=== PATIENT | male | born 1975 | race Two or more races ===

== ENCOUNTER → 2020-01-13 06:36 | Outpatient (BNVA) | payer OTHER, SELFPAY | PROVIDERS: PCP Internal Medicine; Visit Provider Surgery | DX: Z76.89 Persons encountering health services in other specified circumstances (principal) ==

== ENCOUNTER → 2020-01-23 14:06 | Outpatient (BNVA) | payer OTHER, SELFPAY | PROVIDERS: PCP Internal Medicine; Referring Provider Internal Medicine; Visit Provider Physician Assistant | DX: Z76.89 Persons encountering health services in other specified circumstances (principal) ==

== ENCOUNTER 2020-01-27 14:24 | Inpatient (IN) | payer OTHER, SELFPAY ==
[2020-01-23 12:36] VITALS: BMI 40.0
[2020-01-23 12:42] VITALS: BP 114/73; PULSE 71; RESP 16; O2SAT 96
--- NOTE | 2020-01-23 13:01 | HO.ANESPROP2 ---
Documented by User: Kassie Apodaca 01/26/20 15:13 HPI - Anesthesia Eval Consult details Narrative: 44yo M for gastric sleeve PMFSH Past Medical History Medical History GERD (gastroesophageal reflux disease) Hyperlipidemia Hypertension Non-insulin dependent diabetes mellitus Obesity Sleep apnea Functional capacity: independent ambulation Family History Family History Father No problems noted. Mother HTN (hypertension) Family history of problems with anesthesia: No Surgical History Surgical History Hx of circumcision Hx of LASIK History of Problems with Anesthesia: No Social History Social History Are you a primary wound care specialist to a significant other at home: No Do you presently have visiting nurse or other home services: No Alcohol intake: never Smoking Status: Never smoker Second Hand Smoke Exposure: No Use of substances other than those prescribed or required for medical reasons: No Have you been hit, kicked, punched, or otherwise hurt by someone within the past year? If so, by whom?: No Spiritual Healthcare Practices: none Adventist Healthcare Practices: none Cultural Healthcare Practices: none Advance Directives: No Advance Directives Information Provided: No Advance Directives on File: No Recently lost weight without trying: No Narrative Narrative: >4 mets with regular exercise/walking no recent illness Meds Allergies Allergy/AdvReac Type Severity Reaction Status Date / Time No Known Allergies Allergy Unverified 12/25/19 15:34 [No Known Allergies*] Home Medications Medication Instructions Recorded Confirmed Type glimepiride 4 mg tablet 4 mg PO DAILY 01/10/20 01/23/20 History lisinopril 2.5 mg tablet 2.5 mg PO DAILY 01/10/20 01/23/20 History simvastatin 10 mg tablet 10 mg PO BEDTIME 01/10/20 01/23/20 History metformin 500 mg PO BID 01/23/20 01/23/20 History sucralfate 10 ml PO BID 01/23/20 01/23/20 History Exam Exam Date and Time: January 23, 2020 1301 Height,Weight and Vital Signs: Height 5 ft 2 in Weight 99.337 kg Last Vital Signs Pulse 71 01/23/20 12:42 Resp 16 01/23/20 12:42 BP 114/73 01/23/20 12:42 Pulse Ox 96 01/23/20 12:42 Pertinent Lab Results Pertinent Lab Results: Laboratory Tests 01/23/20 01/23/20 01/23/20 14:00 14:00 14:00 WBC 6.7 Hgb 15.8 Hct 47.3 Plt Count 215 Sodium 139 Potassium 4.7 Chloride 105 BUN 19 H Creatinine 1.02 Hemoglobin A1c % TSH 0.60 Blood Type A Positive Antibody Screen NEGATIVE 01/23/20 14:00 WBC Hgb Hct Plt Count Sodium Potassium Chloride BUN Creatinine Hemoglobin A1c % 5.5 TSH Blood Type Antibody Screen Narrative Narrative: EKG 11/2019: NSR, ?LVH ECHO 11/2019: nml study Airway Mallampati Class: II TM Dist: >3cm Neck ROM: Full Loose/Missing/Broken Teeth: Yes (Missing molars) Heart: RRR Lungs: CTAB Assessment and Plan Assessment Anesthesia Assessment: Anesthesia Plan Discussed and PAT Visit Documented by User: Harvinder Barrera 01/27/20 09:50 [facility] Past Medical History Medical History GERD (gastroesophageal reflux disease) Hyperlipidemia Hypertension Non-insulin dependent diabetes mellitus Obesity Sleep apnea Family History Family History Father No problems noted. Mother HTN (hypertension) Surgical History Surgical History Hx of circumcision Hx of LASIK Social History Social History Are you a primary wound care specialist to a significant other at home: No Do you presently have visiting nurse or other home services: No Alcohol intake: never Smoking Status: Never smoker Second Hand Smoke Exposure: No Use of substances other than those prescribed or required for medical reasons: No Have you been hit, kicked, punched, or otherwise hurt by someone within the past year? If so, by whom?: No Spiritual Healthcare Practices: none Adventist Healthcare Practices: none Cultural Healthcare Practices: none Advance Directives: No Advance Directives Information Provided: No Advance Directives on File: No Recently lost weight without trying: No Meds Allergies Allergy/AdvReac Type Severity Reaction Status Date / Time No Known Allergies Allergy Unverified 12/25/19 15:34 [No Known Allergies*] Home Medications Medication Instructions Recorded Confirmed Type glimepiride 4 mg tablet 4 mg PO DAILY 01/10/20 01/23/20 History lisinopril 2.5 mg tablet 2.5 mg PO DAILY 01/10/20 01/23/20 History simvastatin 10 mg tablet 10 mg PO BEDTIME 01/10/20 01/23/20 History metformin 500 mg PO BID 01/23/20 01/23/20 History sucralfate 10 ml PO BID 01/23/20 01/23/20 History
[2020-01-23 14:46] LABS: MANUAL DIFF FLAG NO
[2020-01-23 14:53] LABS: Basophils Absolute Auto 0.1 X10*3/uL (0.0-0.2); Basophils Percent Auto 0.8 % (0-2); Eosinophils Absolute Auto 0.1 X10*3/uL (0.0-0.4); Eosinophils Percent Auto 2.1 % (0-4); Hematocrit 47.3 % (42-52); Hemoglobin 15.8 g/dl (14.0-18.0); Imm Gran Abs Auto 0.02 X10*3/uL (0.00-0.03); Imm Gran Pct Auto 0.3 % (0.0-0.4); Lymphocytes Absolute Auto 2.1 X10*3/uL (1.2-4.9); Lymphocytes Percent Auto 32.1 % (20-40); Mean Corpuscular HGB Conc 33.4 g/dl (31.0-36.0); Mean Corpuscular Hemoglobin 28.7 pg (27.0-33.0); Mean Platelet Volume 11.2 fL (9.4-12.4); Monocytes Absolute Auto 0.5 X10*3/uL (0.1-1.2); Monocytes Percent Auto 7.5 % (2-11); Neutrophils Absolute Auto 3.8 X10*3/uL (2.0-8.3); Neutrophils Percent Auto 57.2 % (45-73); Platelet Count 215 X10*3/uL (160-400); Red Cell Distribution Width 12.5 % (11.0-16.0); White Blood Count 6.7 X10*3/uL (4.8-10.8)
[2020-01-23 14:59] LABS: Prothrombin Time 11.7 SEC (10.8-13.0)
[2020-01-23 15:02] LABS: Partial Thromboplastin Time 34.9 SEC (24.1-38.0)
[2020-01-23 15:09] LABS: Estimated Average Glucose 111 mg/dL; Hemoglobin A1c % 5.5 %
[2020-01-23 15:54] LABS: Alanine Aminotransferase 44 U/L (0-40); Albumin Level 4.5 g/dL (3.5-5.0); Alkaline Phosphatase 86 U/L (39-117); Anion Gap 12 (12-20); Aspartate Amino Transferase 30 U/L (5-37); Blood Urea Nitrogen 19 mg/dL (9-16); C Reactive Protein 0.67 mg/dL (< or = 0.50); Carbon Dioxide 27 mmol/L (22-29); Chloride 105 mmol/L (96-108); Cholesterol 202 mg/dL; Creatinine Clr Calc Pharmacy 96.7; Estimated Glomerular Filt Rate > 60; Glucose Random 82 mg/dL (60-115); HDL Cholesterol 49 mg/dL; LDL Cholesterol Calculated 135 mg/dl; Potassium 4.7 mmol/l (3.3-5.1); Sodium 139 mmol/L (135-145); Total Protein 7.8 g/dL (6.5-8.0); Triglycerides 91 mg/dL
[2020-01-27] VITALS (14 sets, daily range): BP systolic 125–150; BP diastolic 74–99; PULSE 64–89; RESP 14–19; TEMP 36.2–37.1; O2SAT 94–100
--- NOTE | 2020-01-27 07:40 | MHC.SHP ---
Pre-Procedural Eval Section A The patient is an INPATIENT: Yes The History & Physical has been completed within 30 days and I have reviewed it.: Yes Section B Chief Complaint: obesity Details of Present Illness: Obesity Allergies: Allergies Allergy/AdvReac Type Severity Reaction Status Date / Time No Known Allergies Allergy Unverified 12/25/19 15:34 [No Known Allergies*] Review of Systems Sugical H&P ROS: Negative: Constitution, Cardiovascular, Respiratory, Neurological, Psychiatric, Hem-Onc, Allergic/Immunologic, Gastrointestinal, Genitourinary, Musculoskeletal, Integumentary, Endocrine and Eyes/Ears/Nose/Throat Exam Surgical H&P Exam: Normal: HEENT, Normal: Heart, Normal: Lungs, Normal: Extremities, Normal: Abdomen, Normal: Skin and Normal: Neurological Plan Diagnosis/Plan: Unchanged Patient has been examined and remains a candidate for the planned procedure
[2020-01-27] MEDS: Lactated Ringers 1,000 ML 100 ML IVCONT ×2 (08:00→16:39)
[2020-01-27 08:14] LABS: Glucose, Whole Blood 104 mg/dL (60-115)
[2020-01-27 08:54] LABS: SARS COV2 PCR INHOUSE NEGATIVE (Negative)
--- NOTE | 2020-01-27 09:18 | PC.NURSE ---
Pt pre operative call done yesterday, 01-26-2020 at 1530. while discussing pre op instruction pt became confused by not eating anything after midnight . pt noted to have honduran accent. Lan KRAMER to recall pt in [place] to clarify any misunderstandings.
--- NOTE | 2020-01-27 12:44 | PM.OP ---
Brief Operative Note Date of procedure: 01/27/20 Pre-op diagnosis: Obesity with a BMI of 39.5 kg/m2 and associated comorbidities Post-op diagnosis: same (& incarcerated diaphragmatic hernia) Procedure: INITIAL PATIENT BMI ON PRESENTATION AT OUR OFFICE: 41.5 kg/m2 LAST BMI BEFORE SURGERY: 38.5 kg/m2 COMORBIDITIES: sleep apnea on CPAP, hypertension, non-insulin dependent diabetes, hyperlipidemia, diaphragmatic hernia, liver steatosis, liver fibrosis The patient participated in an intensive weekly lifestyle intervention and exercise program during which the patient has lost between the initial office visit and the last preoperative visit 21.6 lbs, or 8.95% of initial actual body weight. The patient met the BMI-criteria for bariatric surgery based on the BMI on initial presentation. The patient should not be penalized for achieving such weight loss because it is not sustainable long-term without surgical intervention and it was achieved in preparation for bariatric surgery under my direction and based on my published research ([email or web address] and [email or web address]) that a 10% preoperative weight loss improves long-term weight loss after surgery and reduces perioperative complications. Insurance carriers such as [facility] have endorsed my recommendations and have included in their policies criteria to include a 10% preoperative weight loss requirement. PROCEDURE: Esophago-gastroscopy, laparoscopic repair of incarcerated diaphragmatic hernia, laparoscopic lysis of adhesions, laparoscopic sleeve gastrectomy and laparoscopic gastropexy INDICATIONS: This is a 44 year-old male who was electively scheduled for laparoscopic, possibly open sleeve gastrectomy. The risks and complications of the procedure were discussed with the patient in advance, particularly the possibility of ; pulmonary embolism; staple line leak; bleeding; GERD; cardiac, pulmonary, or renal complications; as well as long-term problems such as insufficient weight loss, vitamin deficiency, strictures, or ulcers. The patient understood all the risks, and was in agreement to proceed with surgery. DESCRIPTION OF PROCEDURE: After informed consent was obtained from the patient, the patient was given preoperative antibiotics, and was transferred to the operating room. After successful induction of general anesthesia, a Mary catheter and pneumatic compressive devices were placed on both lower extremities. An upper endoscopy was performed next. The oropharynx and esophagus appeared to be within normal limits. There was a diaphragmatic hernia present of moderate size consistent with the findings of the preoperative upper GI. The stomach was entered. Then after all fluid and air were suctioned and the stomach was fully decompressed, the scope was withdrawn and secured in the mid esophagus. The patient was then prepped and draped in the usual sterile manner, and abdominal access was established at the right upper quadrant with the Adis technique. A 12 mm blunt port was inserted, and the abdomen was insufflated with CO2 to a pressure of 15 mmHg. Under direct visualization, additional ports were placed, specifically two 5 mm Versi-step ports to the left upper quadrant, and a 5 mm Versi-Step port to the right upper quadrant. 1% lidocained plan was used to infiltrate all port sites as well as all fascia defects. Following that, the patient was placed in a steep reverse Trendelenburg position. An additional 5 mm port was placed to the right flank for the Mediflex retractor that was used to retract the left lobe of the liver. The gastro-esophageal fat pad was opened with the ultrasonic device (Thunderbeat, Olympus) and the anterior esophagus and hiatus were exposed. The angle of His was opened with the ultrasonic device the fundus of the stomach from any diaphragmatic and splenic attachments. I then opened the gastrocolic ligament between the transverse colon and the greater curvature of the stomach with the ultrasonic device to enter the lesser sac and facilitate the ligation of the short gastric vessels. I started at a mid-point along the greater curvature and using the Thunderbeat, all short gastric vessels were divided all the way to the angle of His until the left kwesi was completely dissected at its entirety. I then divided the gastro-colic ligament distally to a distance of about 3-4 cm proximal to the esophagus. There were extensive congenital adhesions between the pancreas and posterior gastric wall. Those were lysed completely with the ultrasonic device. Adhesiolysis took approximately 45 min to complete. There was an obvious significant-sized hiatal hernia which was mostly posterior with part of the posterior short gastric vessels incarcerated into the mediastinum. I continued dissecting along the hiatus toward the left kwesi and the angle of His. I fully mobilized the fat pad that was incarcerated in the hernia. I then continued by dissecting even further into the posterior retro-esophageal space all the way to the angle of His. The right kwesi was also fully mobilized. I continued to mobilize the esophagus into the mediastinum circumferentially. Both vagal nerves were seen and preserved. At that point, I was able to have at least 3 to 5 cm of esophagus into the abdomen. After I completely mobilized the esophagus from both the left and right kwesi and I had a good mobilization of the esophagus circumferentially, I closed the hernia defect with two interrupted #0 Surgidac sutures using the Endo Stitch device, which were both placed posterior to the esophagus. The stomach was then divided transversely with one Endo EFREM-45 purple, one Endo EFREM-45 orange load and four EFREM-60 articulating orange loads using the AEON stapler and loads. Every effort was made that the gastric sleeve had a tubular shape and an even caliber throughout. Once the sleeve resection was completed, the staple line of the gastric sleeve was reinforced with Hemoclips. The resected stomach was retrieved without difficulty from the Adis port. A gastropexy was then performed in order to prevent postoperative GERD and partial gastric volvulus. Several interrupted 2.0 Surgidac sutures were placed between the sleeve's staple line and the previously divided greater omentum and gastro-colic ligament using the Endo-Stitch device. An upper endoscopy was performed. There was no narrowing at the GE junction. The scope was easily advanced all the way to the pylorus which was clearly visualized. There was no narrowing anywhere and the sleeve's caliber was even throughout. The sleeve's staple line was inspected and there was no evidence of ischemia, bleeding or dehiscence. At that point the gastroscope was withdrawn from the patient?s mouth while we were decompressing the bowel and the stomach from any remaining air. I looked into the lesser sac to see how the sleeve was situating and it was situating well. There was no bleeding from the staple line, spleen, or short gastric vessels. The Mediflex retractor was removed, and the undersurface of the liver was inspected and there was no bleeding. The patient was placed in supine position. I closed the fascial defect of the 12 mm port site with a figure of eight #1 Polysorb suture. Then 100 cc 0.25 % Marcaine plain with 10 mg of Dexamethasone were used to infiltrate the fascial closure as well as all skin incisions. At this point, the abdomen was deflated, all ports were removed under direct vision, and no bleeding was noted from any of the port sites. The skin incisions were irrigated with saline and were closed with 4-0 absorbable monofilament sutures. Steri-Strips and OpSites were used to cover all incisions. The patient was extubated and was transferred in stable condition to the recovery room for further care. I was present and performed all hunter parts of the procedure. Ms. Cho was the medical claims assistant. There were no residents to assist with this case. Please send copy of the operative report to Dr. Parikh. Rajiv Alfaro MD, PhD, FACS Surgeon: Rupert Alfaro MD Anesthesia: GETA, local and other (TAP block) Pipe Bending Machine Operator: Melody Cho Estimated blood loss (mL): 10 IV fluids (mL): 3,000 Urine output (mL): 0 (No Mary to record) Pathology: other (Stomach) Condition: stable Disposition: PACU
[2020-01-27] MEDS: ondansetron HCL 4 MG/2 ML VIAL IVPUSH (15:07)
[2020-01-27 15:46] LABS: Hematocrit 44.8 % (42-52)
[2020-01-27 16:16] LABS: Anion Gap 12 (12-20); Blood Urea Nitrogen 12 mg/dL (9-16); Carbon Dioxide 27 mmol/L (22-29); Chloride 103 mmol/L (96-108); Creatinine Clr Calc Pharmacy 102.7; Estimated Glomerular Filt Rate > 60; Glucose Random 161 mg/dL (60-115); Potassium 4.1 mmol/l (3.3-5.1); Sodium 138 mmol/L (135-145)
[2020-01-27] MEDS: Famotidine/PF 20 MG/2 ML VIAL IVPUSH ×2 (16:39→21:21)
[2020-01-27] MEDS: ceFAZolin Sodium/Dextrose,Iso 2 GM/50 ML PIGGYBACK IV (16:43)
[2020-01-27 16:57] LABS: Glucose, Whole Blood 158 mg/dL (60-115)
--- NOTE | 2020-01-27 17:39 | P.PNGS_ITS ---
Subjective Subjective Interval history: Patient has some incisional pain. Was able to ambulate and use the incentive spirometer. Physical Exam Vital Signs: Vital Signs: Vital Signs Temp Pulse Resp BP Pulse Ox 01/27/20 16:00 97.8 F 75 19 144/86 H 95 01/27/20 15:27 76 16 137/89 94 01/27/20 14:55 67 16 141/92 H 94 01/27/20 14:40 97.1 F 71 16 141/92 H 95 01/27/20 14:20 64 16 141/99 H 95 01/27/20 14:05 79 16 136/94 H 100 01/27/20 13:50 74 16 140/84 H 100 01/27/20 13:35 74 16 150/92 H 100 01/27/20 13:20 71 16 143/83 H 100 01/27/20 13:15 85 16 132/82 100 01/27/20 13:10 80 16 128/74 100 01/27/20 13:05 98.3 F 81 14 129/76 100 01/27/20 07:54 98.5 F 68 18 125/85 97 Body Mass Index 40.0 Const: General: comfortable, no acute distress and awake Resp: Effort & Inspection: normal respiratory effort and able to speak in complete sentences Cardio: Jugular venous distension: no JVD Rate: regular rate GI: Inspection: Yes normal to inspection, Yes incision (dry and clean) and Yes obesity Extrem: Right lower extremity: normal to inspection (No calf tenderness) Left lower extremity: normal to inspection (No calf tenderness) Progress Note: A&P Assessment and plan (1) BMI 39.0-39.9,adult: Status: Acute (2) GERD (gastroesophageal reflux disease): Status: Acute (3) Hyperlipidemia: Status: Acute (4) Non-insulin dependent diabetes mellitus: Status: Acute (5) Obesity: Status: Acute Assessment and Plan: s/p laparoscopic sleeve gastrectomy, gastropexy and diaphragmatic hernia repair Doing well. Continue phase 1 bariatric diet. Possible discharge later today (6) Hypertension: Status: Acute (7) S/P laparoscopic sleeve gastrectomy: Status: Acute (8) Sleep apnea: Status: Acute (9) Diaphragmatic hernia: Status: Acute (10) Status post repair of paraesophageal diaphragmatic hernia: Status: Acute (11) Steatosis, liver: Status: Acute (12) Liver fibrosis: Status: Acute Fall Risk Details Current Medications: Current Medications Generic Name Dose Route Start Last Admin Trade Name Freq PRN Reason Stop Dose Admin Famotidine 20 mg 01/27/20 14:00 01/27/20 16:39 Famotidine/Pf 20 Mg/2 Ml Vial IVPUSH 20 mg BID TUCKER Administration Hydromorphone HCl 0.25 mg 01/27/20 13:54 Hydromorphone Hcl 0.5 Mg/0.5 Ml Syringe IVPUSH Q4H PRN Pain, Moderate (Pain Scale 4-6 Lactated Ringer's 1,000 mls @ 100 mls/hr 01/27/20 07:15 01/27/20 16:39 Lr IVCONT 100 mls/hr .Q10H TUCKER Administration Acetaminophen 1,000 mg in 100 mls @ 400 mls/hr 01/27/20 14:00 01/27/20 16:23 Ofirmev IV 01/30/20 08:14 Not Given Q6H TUCKER Lactated Ringer's 1,000 mls @ 150 mls/hr 01/27/20 14:15 01/27/20 16:24 Lr IVCONT Not Given .Q6H40M TUCKER Lisinopril 2.5 mg 01/28/20 09:00 Lisinopril 2.5 Mg Tablet PO DAILY [facility] Protocol Metoclopramide HCl 10 mg 01/27/20 14:00 Metoclopramide Hcl 10 Mg/2 Ml Vial IVPUSH Q6H PRN Nausea Ondansetron HCl 4 mg 01/27/20 13:54 Ondansetron Hcl 4 Mg/2 Ml Vial IVPUSH Q4H PRN Nausea and Vomiting Ondansetron HCl 4 mg 01/27/20 15:02 Ondansetron Hcl 4 Mg/2 Ml Vial IVPUSH ONCE PRN Nausea and Vomiting Sodium Chloride 3 ml 01/27/20 16:00 01/27/20 16:39 0.9 % Sodium Chloride Flush 3 Ml Syringe IVFLUSH Not Given QSHIFT TUCKER Time Spent With Patient Time: Total time spent is greater than 50% in coordination of care (as documented) at patient's floor/unit and/or counseling patient: Time with patient: less than 15 minutes (non-billable visit under global period. no option in the system for this)
[2020-01-27] MEDS: 0.9 % Sodium Chloride Flush 3 ML SYRINGE IVFLUSH (21:21)
[2020-01-28 00:25] VITALS: BP 149/87; PULSE 78; RESP 16; TEMP 37.2; O2SAT 96
[2020-01-28] MEDS: Lactated Ringers 1,000 ML 100 ML IVCONT (02:06)
[2020-01-28 04:00] VITALS: BP 130/74; PULSE 71; RESP 16; TEMP 36.7; O2SAT 97
[2020-01-28 06:28] LABS: MANUAL DIFF FLAG NO
[2020-01-28 06:43] LABS: Hematocrit 42.7 % (42-52); Hemoglobin 14.1 g/dl (14.0-18.0); Imm Gran Abs Auto 0.03 X10*3/uL (0.00-0.03); Imm Gran Pct Auto 0.3 % (0.0-0.4); Lymphocytes Percent Auto 10.8 % (20-40); Mean Corpuscular Hemoglobin 28.2 pg (27.0-33.0); Mean Corpuscular Volume 85.4 fL (80-98); Mean Platelet Volume 11.4 fL (9.4-12.4); Monocytes Absolute Auto 0.8 X10*3/uL (0.1-1.2); Monocytes Percent Auto 8.7 % (2-11); Neutrophils Absolute Auto 7.6 X10*3/uL (2.0-8.3); Neutrophils Percent Auto 80.2 % (45-73); Platelet Count 179 X10*3/uL (160-400); Red Cell Distribution Width 12.6 % (11.0-16.0); White Blood Count 9.5 X10*3/uL (4.8-10.8)
[2020-01-28] MEDS: lisinopriL 2.5 MG TABLET PO (07:25)
[2020-01-28] MEDS: Famotidine/PF 20 MG/2 ML VIAL IVPUSH (07:26)
[2020-01-28 07:46] VITALS: BP 145/68; PULSE 77; RESP 18; TEMP 36.2; O2SAT 96
[2020-01-28 07:54] LABS: Anion Gap 14 (12-20); Blood Urea Nitrogen 10 mg/dL (9-16); Calcium 9.5 mg/dL (8.4-10.2); Carbon Dioxide 26 mmol/L (22-29); Chloride 105 mmol/L (96-108); Creatinine Clr Calc Pharmacy 114.7; Estimated Glomerular Filt Rate > 60; Glucose Random 125 mg/dL (60-115); Potassium 4.2 mmol/l (3.3-5.1); Sodium 141 mmol/L (135-145)
[2020-01-28 07:59] LABS: Glucose, Whole Blood 114 mg/dL (60-115)
--- NOTE | 2020-01-28 08:18 | MHC.CM.PN ---
pt lives c his in their home. he reports he is independent in his care. he works a job and drives a car. pt's can help him should he have any needs. this will include a ride home at dc. pt denies the need for vna at dc. dc plan is home no svcs. cm to cont. to follow.
--- NOTE | 2020-01-28 09:29 | HO.POSTANES ---
Post Anesthesia Evaluation Post Anesthesia Evaluation Vital Signs: Vital Signs Temp Pulse Resp BP Pulse Ox 01/28/20 07:46 97.2 F 77 18 145/68 H 96 01/28/20 04:00 98.1 F 71 16 130/74 97 01/28/20 00:25 98.9 F 78 16 149/87 H 96 Anesthesia: General Mental Status: Awake Pain Control: Satisfactory Nausea/Vomiting: None Hydration: Adequate Anesthesia-Related Issues: No Anes. Related Issues
--- NOTE | 2020-03-31 14:11 | P.DS_ITS ---
DS: Providers Provider Date of admission: 01/27/20 14:24 Primary care physician: Unknown Physician DS: Diagnosis Discharge Diagnosis (1) BMI 39.0-39.9,adult: Status: Acute (2) GERD (gastroesophageal reflux disease): Status: Acute (3) Hyperlipidemia: Status: Acute (4) Non-insulin dependent diabetes mellitus: Status: Acute (5) Obesity: Status: Acute (6) Hypertension: Status: Acute (7) S/P laparoscopic sleeve gastrectomy: Status: Acute (8) Sleep apnea: Status: Acute (9) Diaphragmatic hernia: Status: Acute (10) Status post repair of paraesophageal diaphragmatic hernia: Status: Acute (11) Steatosis, liver: Status: Acute (12) Liver fibrosis: Status: Acute DS: Medications Discharge Medications Home Medications: Home Medications Medication Instructions Recorded Confirmed glimepiride 4 mg tablet 4 mg PO DAILY 01/10/20 01/23/20 lisinopril 2.5 mg tablet 2.5 mg PO DAILY 01/10/20 01/23/20 metformin 500 mg PO BID 01/23/20 01/23/20 sucralfate 10 ml PO BID 01/23/20 01/23/20 Previous Rx's Medication Instructions Recorded pantoprazole 40 mg tablet,delayed 40 mg PO DAILY #30 tab 01/12/20 release simvastatin 10 mg tablet 10 mg PO BEDTIME #30 tab 03/09/20 DS: Summary Time Spent with Patient Time attestation: Total time spent providing and/or coordinating discharge services: Physical Exam Vital Signs: Vital Signs: Last Vital Signs Temp 97.2 F 01/28/20 07:46 Pulse 77 01/28/20 07:46 Resp 18 01/28/20 07:46 BP 145/68 H 01/28/20 07:46 Pulse Ox 96 01/28/20 07:46 Body Mass Index 40.0 DS: Data Data Completed and Pending Completed studies during hospitalization [Text1]: Pending at discharge 01/27/20 13:14 Surgical [PTH] Routine Procedures Excision of Stomach, Percutaneous Endoscopic Approach, Vertical (01/27/20) Release Peritoneum, Percutaneous Endoscopic Approach (01/27/20) Repair Diaphragm, Percutaneous Endoscopic Approach (01/27/20) Labs on day of discharge: 01/23/20 14:00 Type and Screen Routine C Reactive Protein Routine Complete Blood Count Auto Diff Routine Comprehensive Met. Panel Routine Hemoglobin A1c Routine Insulin Level Total Routine Lipid Panel Routine Partial Thromboplastin Time Routine Prothrombin Time INR Routine Thyroid Stimulating Hormone Routine 01/27/20 07:15 Acetaminophen [Ofirmev] 1,000 mg in 100 ml IV PREOP Lactated Ringers [Lr] 1,000 ml IVCONT 100 mls/hr 01/27/20 07:15 Glucose, blood poc AM PRE-OP 01/27/20 07:20 SARS COV2 PCR INHOUSE Stat 01/27/20 08:10 Glucose, Whole Blood Routine 01/27/20 08:23 Acetaminophen [Ofirmev] 1,000 mg in 100 ml IV As directed 01/27/20 08:26 ceFAZolin Sodium/Dextrose,Iso [Ancef] 2 gm in 50 ml .ROUTE As directed 01/27/20 08:32 Lidocaine HCl 2 % MPF [Xylocaine 2 % MPF] 5 ml .ROUTE .STK-MED ONE Rocuronium [place] [Zemuron] 100 mg IV .STK-MED ONE propofoL [Diprivan] 200 mg IVPUSH .STK-MED ONE 01/27/20 09:11 Ketamine HCl/NS 50 mg IVPUSH .STK-MED ONE Midazolam HCl/PF [Versed] 2 mg IVPUSH .STK-MED ONE fentaNYL citrate/PF [Sublimaze] 50 mcg .ROUTE .STK-MED ONE 01/27/20 09:49 dexAMETHasone Sod Phosphate/PF [Decadron] 10 mg .ROUTE .STK-MED ONE 01/27/20 09:51 Bupivacaine MPF 0.25 % [Sensorcaine-MPF 0.25% 10 ML] 10 ml .ROUTE .STK-MED ONE Lidocaine HCl 1 % MPF [Xylocaine 1 % MPF] 5 ml .ROUTE .STK-MED ONE 01/27/20 Breakfast NPO Diet 01/27/20 10:15 Succinylcholine Chloride [Quelicin] 100 mg IVPUSH .STK-MED ONE 01/27/20 10:30 dexAMETHasone sod phosphate [Decadron] 4 mg .ROUTE .STK-MED ONE ondansetron HCL [Zofran] 4 mg .ROUTE .STK-MED ONE 01/27/20 10:33 Lidocaine HCl 1 % MPF [Xylocaine 1 % MPF] 5 ml .ROUTE .STK-MED ONE 01/27/20 10:59 HYDROmorphone HCl [Dilaudid] 2 mg .ROUTE .STK-MED ONE 01/27/20 11:35 propofoL [Diprivan] 200 mg IVPUSH .STK-MED ONE 01/27/20 11:57 Sugammadex Sodium [Bridion] 200 mg IVPUSH .STK-MED ONE 01/27/20 13:14 Surgical [PTH] Routine 01/27/20 13:54 Ambulate Q4H WHILE AWAKE Compression Therapy QSHIFT Head of bed elevation DIRECTED Incentive Spirometry Q1HR WHILE AWAKE Intake and Output Q4HR Code Status Routine HYDROmorphone HCl [Dilaudid] 0.25 mg IVPUSH Q4H PRN ondansetron HCL [Zofran] 4 mg IVPUSH Q4H PRN 01/27/20 13:56 Apply Abdominal Binder TOLERATED Vital Signs Q4H 01/27/20 14:00 Acetaminophen [Ofirmev] 1,000 mg in 100 ml IV Q6H Famotidine/PF [Pepcid/PF] 20 mg IVPUSH BID Metoclopramide HCl [Reglan] 10 mg IVPUSH Q6H PRN ceFAZolin Sodium/Dextrose,Iso [Ancef] 2 gm in 50 ml IV ONCE 01/27/20 14:15 Lactated Ringers [Lr] 1,000 ml IVCONT 150 mls/hr 01/27/20 14:47 ondansetron HCL [Zofran] 4 mg .ROUTE .STK-MED ONE 01/27/20 15:02 ondansetron HCL [Zofran] 4 mg IVPUSH ONCE ONE ondansetron HCL [Zofran] 4 mg IVPUSH ONCE PRN 01/27/20 15:30 Basic Metabolic Panel Stat Hemoglobin and Hematocrit Stat 01/27/20 16:00 0.9 % Sodium Chloride Flush [NS Flush] 3 ml IVFLUSH QSHIFT 01/27/20 16:49 Glucose, Whole Blood Routine 01/28/20 06:09 Basic Metabolic Panel DAILY@0600 Complete Blood Count Auto Diff DAILY@0600 01/28/20 07:49 Glucose, Whole Blood Routine 01/28/20 09:00 lisinopriL [Zestril] 2.5 mg PO DAILY Laboratory Last Values WBC 9.5 X10*3/uL (4.8-10.8) 01/28/20 06:09 RBC 5.00 X10*6/uL (4.60-5.80) 01/28/20 06:09 Hgb 14.1 g/dl (14.0-18.0) 01/28/20 06:09 Hct 42.7 % (42-52) 01/28/20 06:09 MCV 85.4 fL (80-98) 01/28/20 06:09 MCH 28.2 pg (27.0-33.0) 01/28/20 06:09 MCHC 33.0 g/dl (31.0-36.0) 01/28/20 06:09 RDW 12.6 % (11.0-16.0) 01/28/20 06:09 Plt Count 179 X10*3/uL (160-400) 01/28/20 06:09 MPV 11.4 fL (9.4-12.4) 01/28/20 06:09 Immature Gran % (Auto) 0.3 % (0.0-0.4) 01/28/20 06:09 Neut % (Auto) 80.2 % (45-73) H 01/28/20 06:09 Lymph % (Auto) 10.8 % (20-40) L 01/28/20 06:09 [place] % (Auto) 8.7 % (2-11) 01/28/20 06:09 Eos % (Auto) 0.0 % (0-4) 01/28/20 06:09 Baso % (Auto) 0.0 % (0-2) 01/28/20 06:09 Lymph # (Auto) 1.0 X10*3/uL (1.2-4.9) L 01/28/20 06:09 [place] # (Auto) 0.8 X10*3/uL (0.1-1.2) 01/28/20 06:09 Eos # (Auto) 0.0 X10*3/uL (0.0-0.4) 01/28/20 06:09 Baso # (Auto) 0.0 X10*3/uL (0.0-0.2) 01/28/20 06:09 Abs Immat Gran (auto) 0.03 X10*3/uL (0.00-0.03) 01/28/20 06:09 Absolute Neuts (auto) 7.6 X10*3/uL (2.0-8.3) 01/28/20 06:09 Absolute Nucleated RBC 0.000 X10*3/uL (0.0-0.012) 01/28/20 06:09 Nucleated RBC % (auto) 0.0 /100WBC (0.0-0.2) 01/28/20 06:09 PT 11.7 SEC (10.8-13.0) 01/23/20 14:00 INR 1.0 (0.9-1.1) 01/23/20 14:00 APTT 34.9 SEC (24.1-38.0) 01/23/20 14:00 Sodium 141 mmol/L (135-145) 01/28/20 06:09 Potassium 4.2 mmol/l (3.3-5.1) 01/28/20 06:09 Chloride 105 mmol/L (96-108) 01/28/20 06:09 Carbon Dioxide 26 mmol/L (22-29) 01/28/20 06:09 Anion Gap 14 (12-20) 01/28/20 06:09 BUN 10 mg/dL (9-16) 01/28/20 06:09 Creatinine 0.86 mg/dL (0.5-1.4) 01/28/20 06:09 Estim Creat Clear Calc 114.7 01/28/20 06:09 Estimated GFR > 60 01/28/20 06:09 POC Glucose 114 mg/dL (60-115) 01/28/20 07:49 Random Glucose 125 mg/dL (60-115) H 01/28/20 06:09 Estimat Average Glucose 111 mg/dL 01/23/20 14:00 Hemoglobin A1c % 5.5 % 01/23/20 14:00 Total Insulin 27.0 uIU/mL H 01/23/20 14:00 Calcium 9.5 mg/dL (8.4-10.2) 01/28/20 06:09 Total Bilirubin 1.0 mg/dL (0.0-1.0) 01/23/20 14:00 AST 30 U/L (5-37) 01/23/20 14:00 ALT 44 U/L (0-40) H 01/23/20 14:00 Alkaline Phosphatase 86 U/L (39-117) 01/23/20 14:00 C-Reactive Protein 0.67 mg/dL (< or = 0.50) H 01/23/20 14:00 Total Protein 7.8 g/dL (6.5-8.0) 01/23/20 14:00 Albumin 4.5 g/dL (3.5-5.0) 01/23/20 14:00 Triglycerides 91 mg/dL 01/23/20 14:00 Cholesterol 202 mg/dL 01/23/20 14:00 LDL Cholesterol, Calc 135 mg/dl 01/23/20 14:00 HDL Cholesterol 49 mg/dL 01/23/20 14:00 TSH 0.60 mIU/mL (0.32-4.0) 01/23/20 14:00 Coronavirus (PCR) NEGATIVE (Negative) 01/27/20 07:20 Blood Type A Positive 01/23/20 14:00 Antibody Screen NEGATIVE 01/23/20 14:00 Discharge Plan Discharge Anticipated Discharge Date/Time: 01/28/20 11:21 Patient Disposition: Home, Self-Care Referrals: Physician,Unknown [Primary Care Provider] - Discharge Medications: Continued sucralfate 100 mg/mL suspension 10 ml PO BID RF: 0 pantoprazole 40 mg tablet,delayed release (DR/EC) 40 mg PO DAILY Qty: 30 RF: 2 lisinopril 2.5 mg tablet 2.5 mg PO DAILY RF: 0 Held metformin 500 mg Tablet 500 mg PO BID RF: 0 Hold Instructions: Do not restart until Dr Hand instructs. glimepiride 4 mg tablet 4 mg PO DAILY RF: 0 Hold Instructions: Do not restart until Dr Hand instructs. Discontinued ondansetron HCl [Zofran] 4 mg tablet 4 mg PO Q6H Qty: 30 RF: 0 Golytely 227.1-21.5-6.36 gram powder in packet 120 ml PO Q10M Qty: 1 RF: 0 No Action simvastatin 10 mg tablet 10 mg PO BEDTIME Qty: 30 RF: 2 Discharge Orders: Discharge Order (Routine); Ordered 01/28/20 Ordered By: Rupert Alfaro Activity on Discharge: No heavy lifting Discharge Date/Time: 01/28/20 09:02 Care Plan Goals: weight loss Health Concerns: morbid obesity Plan of Treatment: No tub baths, sex or returning to work until discussed at first post op appointment. No exercise, alcohol, tobacco or illegal drug use. Continue to use incentive spirometer hourly while awake. Walk in home for 5- 10 minutes every 2 hours during the first week. Continue phase 1 diet today and start phase 2 diet tomorrow morning. Follow all instructions in the bariatric handbook and call with any questions. ADMITTING DIAGNOSIS: morbid obesity, Dm type II, hypertension, hyperlipidemia, GERD DISCHARGE DIAGNOSIS: same, s/p laparoscopic sleeve gastrectomy and hiatal hernia PAST SURGICAL HISTORY: circumcision, LASIK PROCEDURE: upper endoscopy, laparoscopic sleeve gastrectomy and hiatal hernia repair DISCHARGE SUMMARY: History of Present Illness: The patient is a 44 year-old woman with a BMI of 41.5 kg/m2 and associated co- morbidities as described above. The patient had extensive work-up,lost 32.6 lbs preoperatively and was electively scheduled for laparoscopic, possible open sleeve gastrectomy and gastropexy. Risks and complications of the surgery were discussed with the patient in advance, particularly the possibility of , pulmonary embolism, anastomotic leak, bleeding, bowel injury, GERD, cardiac, renal or pulmonary complications. The patient understood all the risks and wasin agreement with the surgical plan. Hospital Course: The patient underwent an uneventful laparoscopic sleeve gastrectomy with gastropexy and hiatal hernia repair the day of admission. Postoperatively, the patient was transferred to the surgical floor and hemoglobin the first 8 hours after surgery was 15.0 mg/dl. The patient was on IV Acetaminophen and IV dilaudid for pain control. Patient was started on bariatric phase 1 diet POD #0. On postoperative day one, the patient was feeling well without nausea, vomiting, fevers, or tachycardia. The patient had some mild incisional pain. The abdomen was soft. Follow-up hemoglobin was _ mg/dl. The white count was _ with _% neutrophils, the creatinine _ mg/dl was and the potassium _mmol/lt. On the morning of postoperative day one, the patient was continued on 1 ounce of water or ice every half hour. During the first day, the patient did fairly well, having some incisional pain, but able to ambulate adequately and to tolerate liquids well. Since the patient is doing well, we decided that the patient was ready to be discharged. The patient was given instructions to follow-up with me next week and to call my office for any fever over 101, persistent abdominal pain, nausea, vomiting, GERD, change in the color of the HONG fluid, symptoms of DVT such as calf tenderness, or leg swelling, or pulmonary embolism such as chest pain or shortness of breath. The patient was also instructed to drink 40-60 ounces of liquids per day using the 1-ounce cups. The patient was given prescription for Tylenol for pain, Zofran prn for nausea, and pantoprazole and carafate. The patient was encouraged to ambulate and use the incentive spirometer. The patient was allowed to shower, but no baths, and encouraged to stay active at home. All of these instructions were given to the patientpersonally. All questions were answered and the patient understood all instructions, the instructions were also given to the patient in print.
== END 2020-01-28 09:02 | disposition home or self-care (01) | DRG 620 ==
LOC: HO.S3 14:25
PROVIDERS: Physician Assistant; Admitting Provider Surgery; Visit Provider Surgery
PROC: 0DB64Z3 Excision of Stomach, Percutaneous Endoscopic Approach, Vertical (ICD-10-PCS; CPT 43845; principal; 2020-01-27 09:20)
DX: E66.01 Morbid (severe) obesity due to excess calories (principal); K44.0 Diaphragmatic hernia with obstruction, without gangrene; E78.5 Hyperlipidemia, unspecified; K21.9 Gastro-esophageal reflux disease without esophagitis; K74.00 Hepatic fibrosis, unspecified; K66.0 Peritoneal adhesions (postprocedural) (postinfection); E11.9 Type 2 diabetes mellitus without complications; Z68.41 Body mass index [BMI] 40.0-44.9, adult; G47.30 Sleep apnea, unspecified; Z99.89 Dependence on other enabling machines and devices; Z20.828 Contact with and (suspected) exposure to other viral communicable diseases; Z79.84 Long term (current) use of oral hypoglycemic drugs; Z79.899 Other long term (current) drug therapy
CPT/HCPCS: 36415; 80048; 80053; 80061; 82947; 83036; 83525; 84443; 85014; 85018; 85025; 85610; 85730; 86140; 86850; 86900; 86901; 87635; 88307; 88342; 99224; A4649; J0131; J0330; J0690; J1100; J1170; J2250; J2405; J3010

== ENCOUNTER → 2020-02-02 07:55 | Outpatient (BNVA) | payer OTHER, SELFPAY | PROVIDERS: PCP Internal Medicine; Referring Provider Internal Medicine; Visit Provider Surgery | DX: Z76.89 Persons encountering health services in other specified circumstances (principal) ==

== ENCOUNTER → 2020-03-08 07:31 | Outpatient (BNVA) | payer OTHER, SELFPAY | PROVIDERS: PCP Internal Medicine; Visit Provider Surgery | DX: Z76.89 Persons encountering health services in other specified circumstances (principal) ==

== ENCOUNTER 2022-02-23 16:32 | Outpatient (REF) | payer OTHER, MEDICAID, SELFPAY ==
--- NOTE | ~2022-02-23 | XR_ITS ---
EXAMINATION: XR HAND, RIGHT CLINICAL INFORMATION: Injury. COMPARISON: No similar priors. TECHNIQUE: PA, lateral, and oblique views of the right hand. FINDINGS: No acute fracture or malalignment. Carpal rows are maintained. No unexpected radiopaque foreign bodies. XR/XR hand RT min 3V IMPRESSION: No acute fracture or malalignment.
== END 2022-02-23 16:33 | disposition home or self-care (01) ==
LOC: HO.HMGCX 16:32
DX: S69.91XA Unspecified injury of right wrist, hand and finger(s), initial encounter (principal)
CPT/HCPCS: 73130

== ENCOUNTER 2022-05-29 09:38 | Outpatient (REF) | payer OTHER, MEDICAID, SELFPAY ==
[2022-05-29 09:51] LABS: MANUAL DIFF FLAG NO
[2022-05-29 09:56] LABS: Basophils Absolute Auto 0.1 X10*3/uL (0.0-0.2); Basophils Percent Auto 0.7 % (0-2); Eosinophils Absolute Auto 0.2 X10*3/uL (0.0-0.4); Eosinophils Percent Auto 2.8 % (0-4); Hematocrit 45.4 % (42.0-52.0); Hemoglobin 15.2 g/dl (14.0-18.0); Imm Gran Abs Auto 0.03 X10*3/uL (0.00-0.03); Imm Gran Pct Auto 0.4 % (0.0-0.4); Lymphocytes Absolute Auto 2.5 X10*3/uL (1.2-4.9); Lymphocytes Percent Auto 33.3 % (20-40); Mean Corpuscular HGB Conc 33.5 g/dl (31.0-36.0); Mean Corpuscular Hemoglobin 28.6 pg (27.0-33.0); Mean Corpuscular Volume 85.5 fL (80.0-98.0); Mean Platelet Volume 10.8 fL (9.4-12.4); Monocytes Absolute Auto 0.6 X10*3/uL (0.1-1.2); Monocytes Percent Auto 8.2 % (2-11); Neutrophils Absolute Auto 4.1 x10*3/uL (2.0-8.3); Neutrophils Percent Auto 54.6 % (45-73); Platelet Count 224 X10*3/uL (160-400); Red Blood Count 5.31 X10*6/uL (4.60-5.80); Red Cell Distribution Width 12.9 % (11.0-16.0); White Blood Count 7.4 X10*3/uL (4.8-10.8)
[2022-05-29 10:08] LABS: Estimated Average Glucose 163 mg/dL; Hemoglobin A1c % 7.3 %
[2022-05-29 10:28] LABS: Alanine Aminotransferase 50 U/L (0-40); Albumin Level 4.1 g/dL (3.5-5.0); Alkaline Phosphatase 100 U/L (39-117); Anion Gap 10 (12-20); Aspartate Amino Transferase 29 U/L (5-37); Bilirubin Total 1.8 mg/dL (0.0-1.0); Blood Urea Nitrogen 17 mg/dL (9-16); Calcium 9.4 mg/dL (8.4-10.2); Carbon Dioxide 28 mmol/L (22-29); Chloride 104 mmol/L (96-108); Cholesterol 192 mg/dL; Estimated Glomerular Filt Rate 60; Glucose Random 113 mg/dL (60-115); HDL Cholesterol 36 mg/dL; LDL Cholesterol Calculated 115 mg/dl; Potassium 4.1 mmol/L (3.3-5.1); Sodium 138 mmol/L (135-145); Triglycerides 209 mg/dL
[2022-05-29 10:57] LABS: Folate 4.9 ng/mL (> or = 4.0); Free T4 (Free Thyroxine) 0.87 ng/dL (0.71-1.85); Thyroid Stimulating Hormone 1.03 uIU/mL (0.32-4.0); Vitamin B12 290 pg/mL (200-900)
[2022-05-29 10:59] LABS: Creatinine Urine 50.27 mg/dL; Microalbumin Urine < 5.0 mg/L
== END 2022-05-29 09:39 | disposition home or self-care (01) ==
LOC: HO.LAB 09:38
PROVIDERS: PCP Internal Medicine; Visit Provider Internal Medicine
DX: E11.65 Type 2 diabetes mellitus with hyperglycemia (principal); E78.00 Pure hypercholesterolemia, unspecified
CPT/HCPCS: 36415; 80053; 80061; 82043; 82607; 82746; 83036; 84439; 84443; 85025

== ENCOUNTER 2023-03-09 13:39 | Outpatient (AMB) | payer OTHER, SELFPAY ==
[2023-03-09 13:56] VITALS: BP 124/82; PULSE 69; O2SAT 96; BMI 37.8
--- NOTE | 2023-03-09 13:56 | MHC.PC.OV ---
Vital Signs 03/09/23 13:56 Height 5 ft 4 in Weight 220 lb 0.6 oz BMI 37.8 BP 124/82 Blood Pressure Location Lt brachial Position Sitting Pulse 69 Pulse Source Pulse Oximeter Pulse Oximetry (%) 96 Oxygen Delivery Method Room Air Intake Visit Reasons: 6mth f/u DM [employer] Required: No Allergies No Known Allergies [No Known Allergies*] Allergy (Verified 03/09/23 13:58) Medication List - Last Reconciled 03/09/23 by Jany Parikh MD blood sugar diagnostic (FreeStyle Lite Strips) As directed check the BS QD [CPAP 13 cm FULL FACE MASK humidified AIR As directed] lisinopril 2.5 mg PO DAILY Tobacco use date assessed: 03/09/23 HPI 6mth f/u DM HPI Details 47-year-old obese male with diabetes mellitus GERD hypercholesterolemia hypertension last seen in May 2022. Patient is here for follow-up patient has a history of sleeve gastrectomy January 2020. Last complete blood work was done in May 2022 LDL is 115 guidelines is less than 100 . Had very long discussion with the patient regarding the problem of diabetes hypercholesterolemia and weight. Discussed about complications of diabetes with regards to vision heart circulation kidneys and nerve problems. Discussed dietary changes exercise and discussed about medications to start. Patient has also come to at the age of having colonoscopy done. [facility] Medical History (Updated 03/09/23 @ 14:31 by Jany Parikh MD) Hyperlipidemia Liver fibrosis Steatosis, liver Diaphragmatic hernia Sleep apnea GERD (gastroesophageal reflux disease) Hypertension Surgical History History of sleeve gastrectomy Hx of circumcision Hx of LASIK Family History Father No problems noted. Mother HTN (hypertension) Social History Housing: House Are you a primary animal care supervisor to a significant other at home: No Do you presently have visiting nurse or other home services: No Alcohol intake: never Patient Tobacco Use Status: Never used Tobacco e-Cigarette/Vaping Use: Never Used Second Hand Smoke Exposure: No service: No Current occupational status: employed Cognitive needs: No Hearing needs: No Vision needs: No Questionnaire Thrive Questionnaire Date Thrive assessed: 05/29/22 I am a: Patient What is your living situation today?: I have a steady place to live Within the past 12 months, did the food you bought not last and you didn't have the money to get more?: Never true Within the past 12 months, did you worry whether your food would run out before you got money to buy more?: Never true Currently or been in a relationship where the following occur: no concerns reported AUDIT C Alcohol Use Questionnaire (AUDIT-C) 1. How often do you have a drink containing alcohol?: Monthly or less 2. How many drinks containing alcohol do you have on a typical day when you are drinking?: 1 or 2 3. How often do you have six or more drinks on one occasion?: Never Total Score: 1 FORREST-7 AMB Questionnaire FORREST-7 Date FORREST - 7 assessed: 05/29/22 Source: Developed by Drs. Rafita Frazier, Leonarda Llamas, Eliseo Durham and colleagues, with an educational ignacio from [employer]. Physical exam (Primary Care) Vital Signs: Last Vital Signs Pulse 69 03/09/23 13:56 BP 124/82 03/09/23 13:56 Pulse Ox 96 03/09/23 13:56 Oxygen Delivery Method Room Air 03/09/23 13:56 BMI result Body Mass Index 37.8 Tobacco/Smoking Status: Tobacco use Status Tobacco use date assessed 03/09/23 03/09/23 14:00 Patient Tobacco Use Status Never used Tobacco 03/09/23 14:00 e-Cigarette/Vaping Use Never Used 03/09/23 14:00 Thrive Assessment: Date of Thrive Assessment Date Thrive assessed 05/29/22 03/09/23 14:00 Currently or been in a relationship where the following occur: no concerns reported Const General: alert; No acute distress Eyes Conjunctivae: conjunctivae normal Resp Auscultation: clear to auscultation bilaterally Cardio Rate: regular rate Rhythm: regular rhythm GI Inspection: Yes normal to inspection Extrem General: Yes normal to inspection and No edema Results AMB Hemoglobin A1c AMB Hemoglobin A1c 10.4 % Last Edit by AIDE Villavicencio on 03/09/23 14:07 Results Reviewed Results Reviewed: Laboratory Last Values Hgb A1c (Clinic) 10.4 % (4.0-6.0) H 03/09/23 14:06 Assessment and Plan Assessment & Plan (1) History of sleeve gastrectomy: Comment: 01/27/2020 Code(s): Z90.3 - Acquired absence of stomach [part of] Plan: Keep active to help lose the weight (2) Obesity: Code(s): E66.9 - Obesity, unspecified Plan: Diet and exercise (3) Type 2 diabetes mellitus with hyperglycemia: Code(s): E11.65 - Type 2 diabetes mellitus with hyperglycemia Plan: Decrease the amount of carbohydrate intake, pasta, bread, rice and potatoes are all sugar and that is aside from all the sweet stuff, remember that fruits are good but they are Sweet also. Hemoglobin A1c goal of less than 6.5 (4) Hypertension: Code(s): I10 - Essential (primary) hypertension Plan: Continue with blood pressure medication. Decrease salt intake and exercise. Presently on lisinopril 2.5 mg once a (5) Hypercholesterolemia: Code(s): E78.00 - Pure hypercholesterolemia, unspecified Plan: Avoid fried foods, chicken skin, eggs, butter margarine, pastries and meat. Be it pork or beef they have a lot of cholesterol LDL goal of less than 100 and triglyceride of less than 150. Will request for no blood work (6) GERD (gastroesophageal reflux disease): Code(s): K21.9 - Gastro-esophageal reflux disease without esophagitis Plan: Avoid the foods that causes that usually spicy foods, tomato products, juices, coffee, soda and foods that your sensitive to. After eating do not lie down, allow 3-4 hours before in lie down. And keep the head of bed above 30 degrees to avoid the acid from going up. (7) Obstructive sleep apnea: Code(s): G47.33 - Obstructive sleep apnea (adult) (pediatric) Plan: Discussed about CPAP use (8) Colon cancer screening: Code(s): Z12.11 - Encounter for screening for malignant neoplasm of colon Plan: Reminded patient about colonoscopy (9) Numbness of right hand: Code(s): R20.0 - Anesthesia of skin Plan: decline testing for now Orders: Orders AMB Hemoglobin A1c Today E11.65 - Type 2 diabetes mellitus with hyperglycemia Complete Blood Count Auto Diff Today E11.65 - Type 2 diabetes mellitus with hyperglycemia Lipid Panel Today E11.65 - Type 2 diabetes mellitus with hyperglycemia, E78.00 - Pure hypercholesterolemia, unspecified Prostate Specific Antigen Scr Today E11.65 - Type 2 diabetes mellitus with hyperglycemia Comprehensive Met. Panel Today E11.65 - Type 2 diabetes mellitus with hyperglycemia Thyroid Stimulating Hormone Today E11.65 - Type 2 diabetes mellitus with hyperglycemia Referrals Gastroenterology Referral Z12.11 - Encounter for screening for malignant neoplasm of colon Medications: New metformin 500 mg PO BIDWMEAL 60 tabs 4RF E11.65 - Type 2 diabetes mellitus with hyperglycemia Refilled [CPAP 13 cm FULL FACE MASK humidified AIR] As directed 1 ea 0RF G47.30 - Sleep apnea, unspecified Coding Level of Care Code Est Pt Level 4 (78085) Diagnoses History of sleeve gastrectomy Z90.3 Obesity E66.9 Type 2 diabetes mellitus with hyperglycemia E11.65 Hypertension I10 Hypercholesterolemia E78.00 GERD (gastroesophageal reflux disease) K21.9 Obstructive sleep apnea G47.33 Colon cancer screening Z12.11 Numbness of right hand R20.0
== END 2023-03-09 14:34 | disposition home or self-care (01) ==
PROVIDERS: PCP Internal Medicine; Visit Provider Internal Medicine
DX: E11.65 Type 2 diabetes mellitus with hyperglycemia (principal); Z90.3 Acquired absence of stomach [part of]; E66.9 Obesity, unspecified; Z68.37 Body mass index [BMI] 37.0-37.9, adult; I10 Essential (primary) hypertension; E78.00 Pure hypercholesterolemia, unspecified; K21.9 Gastro-esophageal reflux disease without esophagitis; Z12.11 Encounter for screening for malignant neoplasm of colon; G47.33 Obstructive sleep apnea (adult) (pediatric); R20.0 Anesthesia of skin
CPT/HCPCS: 83036; 99214

== ENCOUNTER 2023-04-24 14:31 | Outpatient (AMB) | payer OTHER, SELFPAY ==
--- NOTE | 2023-04-24 14:32 | MHC.OFFVIS ---
Intake Vital Signs 04/24/23 14:33 Height 5 ft 4 in BP 137/80 Blood Pressure Location Lt brachial Position Sitting Intake Visit Reasons: Pre Colonoscopy Consult Intake Note: This patient presents for an assessment for pre colonoscopy consult. Patient c/o; reports no complaints at this time. [employer] Required: No Accompanied by: Other Relationship Allergies No Known Allergies [No Known Allergies*] Allergy (Verified 04/24/23 14:38) Medication List - Last Reconciled 04/24/23 by Idalia Hernandez PA-C blood sugar diagnostic (FreeStyle Lite Strips) As directed check the BS QD [CPAP 13 cm FULL FACE MASK humidified AIR As directed] lisinopril 2.5 mg PO DAILY metformin 500 mg PO BIDWMEAL HPI HPI Comments History of Present Illness Details A 47 y/o male referred- index screening colonoscopy Normal bowels Appetite is good -had gastric sleeve in 2019 he has had no issues at all Sleep apnea- cpap-follows with PCP he wears it every night- He has no cardiac He is diabetic he is taking metformin twice daily No nausea, vomiting, hematemesis, hematochezia fever or chills His is present [facility] Medical History Hyperlipidemia Liver fibrosis Steatosis, liver Diaphragmatic hernia Sleep apnea GERD (gastroesophageal reflux disease) Hypertension Surgical History History of sleeve gastrectomy Hx of circumcision Hx of LASIK Family History Father No problems noted. Mother HTN (hypertension) Social History Housing: House Are you a primary skin care technician to a significant other at home: No Do you presently have visiting nurse or other home services: No Alcohol intake: never Patient Tobacco Use Status: Never used Tobacco e-Cigarette/Vaping Use: Never Used Second Hand Smoke Exposure: No service: No Current occupational status: employed Cognitive needs: No Hearing needs: No Vision needs: No Review of Systems Const All systems reviewed & are unremarkable except as noted in HPI and below ENT Denies dysphagia Card Denies chest pain and Denies dyspnea Resp Denies dyspnea GI Denies abdominal pain, Denies hematochezia, Denies constipation, Denies dysphagia, Denies early satiety, Denies dyspepsia, Denies heartburn, Denies diarrhea, Denies nausea and Denies vomiting Physical Exam Vital Signs: Last Vital Signs BP 137/80 04/24/23 14:33 Eyes Sclerae: sclerae normal Resp Effort & Inspection: normal respiratory effort and able to speak in complete sentences Auscultation: clear to auscultation bilaterally, no rales, no rhonchi and no wheezes Cardio Rate: regular rate Rhythm: regular rhythm Heart sounds: S1 normal heart sound present and S2 normal heart sound present GI Palpation (GI): Soft to palpation and nontender Auscultation: normal bowel sounds Skin General skin exam: no rashes or lesions noted Extrem General: Yes full ROM Psych Appearance: grossly normal and well kempt Mental Status: mental status grossly normal Speech and movement: Normal speech and movement present and Clear speech present Affect: normal affect Attitude: cooperative Thought process: Normal thought process present Thought content: Normal thought content present Insight: Good insight present (Psych) Judgement: Good judgement present (Psych) Assessment & Plan Assessment & Plan (1) Colon cancer screening: Comment: Index screening colonoscopy Code(s): Z12.11 - Encounter for screening for malignant neoplasm of colon (2) Obstructive sleep apnea: Comment: Follows with PCP Code(s): G47.33 - Obstructive sleep apnea (adult) (pediatric) Plan Colonoscopy MG prep metformin omit ofelia before- no dm am of colon Orders: Orders Colonoscopy - GI Use Only Today Z12.11 - Encounter for screening for malignant neoplasm of colon Medications: New bisacodyl (Dulcolax (bisacodyl)) Day before procedure, prep day Take 4 tablets by mouth upon awakening followed by large glass of water 20 mg (4 x 5 mg) PO ONCE 4 tabs 0RF colonoscopy prep 1 day Z12.11 - Encounter for screening for malignant neoplasm of colon polyethylene glycol 3350 (Miralax) Take as directed by mouth the day before your procedure. 238 grams PO ONCE PRN 238 grams 0RF laxative effect 1 day Patient Instructions: Colonoscopy-discussed procedure, rare risks need for escort MG prep reviewed and literature given metformin omit ofelia before- no dm am of colon Encouraged to call questions or concerns Coding Level of Care Code New Pt Level 3 (61769) Diagnoses Colon cancer screening Z12.11 Obstructive sleep apnea G47.33 Time Spent (min) 25
[2023-04-24 14:33] VITALS: BP 137/80
== END 2023-04-24 15:03 | disposition home or self-care (01) ==
PROVIDERS: PCP Internal Medicine; Visit Provider Physician Assistant
DX: Z12.11 Encounter for screening for malignant neoplasm of colon (principal); G47.33 Obstructive sleep apnea (adult) (pediatric); Z01.818 Encounter for other preprocedural examination
CPT/HCPCS: 99203

== ENCOUNTER → 2023-04-24 14:31 | Outpatient (BNVA) | payer OTHER, SELFPAY | PROVIDERS: PCP Internal Medicine; Visit Provider Physician Assistant | DX: Z01.818 Encounter for other preprocedural examination (principal); G47.33 Obstructive sleep apnea (adult) (pediatric) | CPT/HCPCS: 99202 ==

== ENCOUNTER 2023-08-02 06:49 | Day surgery (SDC) | payer OTHER, SELFPAY ==
--- NOTE | 2023-08-01 08:16 | P.CONAN_ITS ---
HPI - Anesthesia Eval Consult details Narrative: 47yo M for Colonoscopy PMFSH Active Problems Active Problems: All Active Problems Numbness of right hand (Acute) Colon cancer screening (Acute) Obstructive sleep apnea (Acute) Hypercholesterolemia (Acute) Annual physical exam (Acute) Contusion of right lower leg (Acute) Tinea pedis (Acute) Type 2 diabetes mellitus with hyperglycemia (Acute) Annual physical exam (Acute) History of sleeve gastrectomy (Acute) Foreign body of sclera of right eye (Acute) Intestinal malabsorption (Acute) Obesity (Acute) Liver fibrosis (Acute) Status post repair of paraesophageal diaphragmatic hernia (Acute) Diaphragmatic hernia (Acute) Sleep apnea (Acute) GERD (gastroesophageal reflux disease) (Acute) Hypertension (Acute) Past Medical History Medical History Hyperlipidemia Liver fibrosis Steatosis, liver Diaphragmatic hernia Sleep apnea GERD (gastroesophageal reflux disease) Hypertension Family History Family History Father No problems noted. Mother HTN (hypertension) Family history of problems with anesthesia: No Surgical History Surgical History History of sleeve gastrectomy Hx of circumcision Hx of LASIK History of Problems with Anesthesia: No Social History Social History Housing: House Are you a primary health care / medical job titles to a significant other at home: No Do you presently have visiting nurse or other home services: No Alcohol intake: never Patient Tobacco Use Status: Never used Tobacco e-Cigarette/Vaping Use: Never Used Second Hand Smoke Exposure: No service: No Current occupational status: employed Cognitive needs: No Hearing needs: No Vision needs: No Meds Allergies Allergy/AdvReac Type Severity Reaction Status Date / Time No Known Allergies Allergy Verified 04/24/23 14:38 [No Known Allergies*] Exam Height,Weight and Vital Signs: Height 5 ft 4 in Assessment and Plan Assessment Anesthesia Assessment: Chart Reviewed Final Anesthetic Review Family History of Problems with Anesthesia: No History of Problems with Anesthesia: No
[2023-08-02 07:28] VITALS: BP 110/71; PULSE 78; RESP 18; TEMP 36.5; O2SAT 95; BMI 42.1
[2023-08-02 07:54] LABS: Glucose, Whole Blood 181 mg/dL (60-115)
[2023-08-02] MEDS: Lactated Ringers 1,000 ML 100 ML IVCONT (08:01)
--- NOTE | 2023-08-02 08:11 | P.CONAN_ITS ---
FORMERLY [facility], LATER [facility] Active Problems Active Problems: All Active Problems Numbness of right hand (Acute) Colon cancer screening (Acute) Obstructive sleep apnea (Acute) Hypercholesterolemia (Acute) Annual physical exam (Acute) Contusion of right lower leg (Acute) Tinea pedis (Acute) Type 2 diabetes mellitus with hyperglycemia (Acute) Annual physical exam (Acute) History of sleeve gastrectomy (Acute) Foreign body of sclera of right eye (Acute) Intestinal malabsorption (Acute) Obesity (Acute) Liver fibrosis (Acute) Status post repair of paraesophageal diaphragmatic hernia (Acute) Diaphragmatic hernia (Acute) Sleep apnea (Acute) GERD (gastroesophageal reflux disease) (Acute) Hypertension (Acute) Past Medical History Medical History Hyperlipidemia Liver fibrosis Steatosis, liver Diaphragmatic hernia Sleep apnea GERD (gastroesophageal reflux disease) Hypertension Family History Family History Father No problems noted. Mother HTN (hypertension) Family history of problems with anesthesia: No Surgical History Surgical History History of sleeve gastrectomy Hx of circumcision Hx of LASIK History of Problems with Anesthesia: No Social History Social History Housing: House Are you a primary career technical counselor to a significant other at home: No Do you presently have visiting nurse or other home services: No Alcohol intake: never Patient Tobacco Use Status: Never used Tobacco e-Cigarette/Vaping Use: Never Used Second Hand Smoke Exposure: No Use of substances other than those prescribed or required for medical reasons: No Advance Directives: No Advance Directives Information Provided: Yes Advance Directives on File: No service: No Current occupational status: employed Cognitive needs: No Hearing needs: No Vision needs: No Meds Allergies Allergy/AdvReac Type Severity Reaction Status Date / Time No Known Allergies Allergy Verified 04/24/23 14:38 [No Known Allergies*] Active Medications: Current Medications Lactated Ringer's (Lr) 1,000 mls @ 100 mls/hr IVCONT .Q10H TUCKER Last Admin: 08/02/23 08:01 Dose: 100 mls/hr Exam Height,Weight and Vital Signs: Height 5 ft 2 in Weight 104.326 kg Last Vital Signs Temp 97.7 F 08/02/23 07:28 Pulse 78 08/02/23 07:28 Resp 18 08/02/23 07:28 BP 110/71 08/02/23 07:28 Pulse Ox 95 08/02/23 07:28 O2 Del Method Room Air 08/02/23 07:28 Pertinent Lab Results Pertinent Lab Results: Laboratory Tests 08/02/23 07:50 POC Glucose 181 H Airway Mallampati Class: IV TM Dist: >3cm Neck ROM: Full Heart: RRR Lungs: CTA Assessment and Plan Assessment Anesthesia Assessment: Anesthesia Plan Discussed Final Anesthetic Review Family History of Problems with Anesthesia: No History of Problems with Anesthesia: No ASA Class: III Final Preanesthetic Review: Meds/Allgs Chart Reviewed, Consent Obtained/Reviewed and Anes Risks/Benef Reviewed Patient Risk: Intermediate Procedure Risk: Low Anesthetic Plan Anesthetic Plan: MAC: Disposition: Standard PACU
--- NOTE | 2023-08-02 08:53 | MHC.SHP ---
Pre-Procedural Eval Section A - 24 Hr Update-Section A only Date of Service: 08/02/23 Section B - Complete if H&P > 30 days Chief Complaint: Encounter for screening for malignant neoplasm of Details of Present Illness: Hyperlipidemia Liver fibrosis Steatosis, liver Diaphragmatic hernia Sleep apnea GERD (gastroesophageal reflux disease) Hypertension Surgical History History of sleeve gastrectomy Hx of circumcision Hx of LASIK Allergies: Allergies Allergy/AdvReac Type Severity Reaction Status Date / Time No Known Allergies Allergy Verified 04/24/23 14:38 [No Known Allergies*] Review of Systems Review of Systems Comment: Ten point ROS negative Exam Exam Comment: Gen appear: No acute distress HEENT: no icterus Chest: No overt resp distress Abd: soft, nontender, nondistended Psych: Stable affect, answering questions appropriately Neuro: A/Ox3 noted to move all extremities spontaneously Ext: no peripheral edema Plan Diagnosis/Plan: Unchanged I have reviewed the history and physical and performed a pertinent physical examination on my patient. No changes have occurred unless specified. Time Spent With Patient Time: Total time managing care of this patient today ____ minutes.
--- NOTE | 2023-08-02 09:14 | HO.ANESPROP2 ---
FORMERLY [facility], [facility] Active Problems Active Problems: All Active Problems Numbness of right hand (Acute) Colon cancer screening (Acute) Obstructive sleep apnea (Acute) Hypercholesterolemia (Acute) Annual physical exam (Acute) Contusion of right lower leg (Acute) Tinea pedis (Acute) Type 2 diabetes mellitus with hyperglycemia (Acute) Annual physical exam (Acute) History of sleeve gastrectomy (Acute) Foreign body of sclera of right eye (Acute) Intestinal malabsorption (Acute) Obesity (Acute) Liver fibrosis (Acute) Status post repair of paraesophageal diaphragmatic hernia (Acute) Diaphragmatic hernia (Acute) Sleep apnea (Acute) GERD (gastroesophageal reflux disease) (Acute) Hypertension (Acute) Past Medical History Medical History Hyperlipidemia Liver fibrosis Steatosis, liver Diaphragmatic hernia Sleep apnea GERD (gastroesophageal reflux disease) Hypertension Functional capacity: independent ambulation Family History Family History Father No problems noted. Mother HTN (hypertension) Family history of problems with anesthesia: No Surgical History Surgical History History of sleeve gastrectomy Hx of circumcision Hx of LASIK History of Problems with Anesthesia: No Social History Social History Housing: House Are you a primary college and career counselor to a significant other at home: No Do you presently have visiting nurse or other home services: No Alcohol intake: never Patient Tobacco Use Status: Never used Tobacco e-Cigarette/Vaping Use: Never Used Second Hand Smoke Exposure: No Use of substances other than those prescribed or required for medical reasons: No Advance Directives: No Advance Directives Information Provided: Yes Advance Directives on File: No service: No Current occupational status: employed Cognitive needs: No Hearing needs: No Vision needs: No Meds Allergies Allergy/AdvReac Type Severity Reaction Status Date / Time No Known Allergies Allergy Verified 04/24/23 14:38 [No Known Allergies*] Active Medications: Current Medications Lactated Ringer's (Lr) 1,000 mls @ 100 mls/hr IVCONT .Q10H TUCKER Last Admin: 08/02/23 08:01 Dose: 100 mls/hr Exam Height,Weight and Vital Signs: Height 5 ft 2 in Weight 104.326 kg Last Vital Signs Temp 97.7 F 08/02/23 07:28 Pulse 78 08/02/23 07:28 Resp 18 08/02/23 07:28 BP 110/71 08/02/23 07:28 Pulse Ox 95 08/02/23 07:28 O2 Del Method Room Air 08/02/23 07:28 Pertinent Lab Results Pertinent Lab Results: Laboratory Tests 08/02/23 07:50 POC Glucose 181 H Airway Mallampati Class: II TM Dist: >3cm Neck ROM: Full Heart: RRR Lungs: CTA Assessment and Plan Assessment Anesthesia Assessment: Anesthesia Plan Discussed Final Anesthetic Review Family History of Problems with Anesthesia: No History of Problems with Anesthesia: No ASA Class: III Final Preanesthetic Review: Meds/Allgs Chart Reviewed, Consent Obtained/Reviewed and Anes Risks/Benef Reviewed Patient Risk: Low Procedure Risk: Low Anesthetic Plan Anesthetic Plan: MAC: Disposition: Standard PACU
--- NOTE | 2023-08-02 09:29 | P.OP_ITS ---
Operative Note Operative Note Date of Service: 08/02/23 Narrative: Procedure: Colonoscopy Indication: Screening Endoscopist: Karolyn Luna MD Anesthesia Provider: Sara Oh CRNA Anesthesia type: MAC Instrument: Olympus [id number]-H190L Consent: Indication, risks vs benefits, and alternatives were discussed with the patient who gave written informed consent to proceed. EKG, pulse, pulse oximetry and blood pressure were monitored throughout the procedure. Please see anesthesia flowsheet. Procedure: The patient was brought to the procedure room and placed in the left lateral decubitus position. IV medications were administered by the anesthesia provider in attendance. A digital rectal exam was performed which was abnormal due to finding of hemorrhoids. A distal attachment cap was affixed to the tip of the scope and the colonoscope was then inserted through the anus and advanced through the colon to the cecum at 75 cm,and terminal ileum. Mucosa was carefully examined under high definition white light as the instrument was slowly withdrawn in a retrograde panoramic fashion. Retroflexion was performed in rectum. The procedure was not difficult. There were no immediate obvious complications. The quality of the prep was BBPS: 2+2+2 = adequate Withdrawal time 13 minutes. Limitations: No limitations. Findings: Mucosa: Normal to cecum and terminal ileum. Protruding lesions: * Medium internal hemorrhoids without stigmata of recent bleeding. Impression: 1. Normal colon and terminal ileum mucosa 2. Internal hemorrhoids Recommendations: - repeat colonoscopy in 10 years for asymptomatic colorectal cancer screening
[2023-08-02 09:34] VITALS: BP 98/58; PULSE 86; RESP 16; TEMP 36.7; O2SAT 98
[2023-08-02 09:49] VITALS: BP 103/68; PULSE 72; RESP 18; TEMP 36.5; O2SAT 96
--- NOTE | 2023-08-02 14:38 | HO.POSTANES ---
Post Anesthesia Evaluation Post Anesthesia Evaluation Date of Service: 08/02/23 Vital Signs: Vital Signs Temp Pulse Resp BP Pulse Ox O2 Del Method 08/02/23 09:49 97.7 F 72 18 103/68 96 Room Air 08/02/23 09:34 98.1 F 86 16 98/58 L 98 Room Air 08/02/23 07:28 97.7 F 78 18 110/71 95 Room Air Anesthesia: Monitored Mental Status: Awake Pain Control: Satisfactory Nausea/Vomiting: None Hydration: Adequate Anesthesia-Related Issues: No Anes. Related Issues
== END 2023-08-02 10:15 | disposition home or self-care (01) ==
PROVIDERS: PCP Internal Medicine; Visit Provider Internal Medicine
PROC: 0DJD8ZZ Inspection of Lower Intestinal Tract, Via Natural or Artificial Opening Endoscopic (ICD-10-PCS; CPT 45378; principal; 2023-08-02 08:30)
DX: Z12.11 Encounter for screening for malignant neoplasm of colon (principal); K64.8 Other hemorrhoids; K21.9 Gastro-esophageal reflux disease without esophagitis; I10 Essential (primary) hypertension; E78.5 Hyperlipidemia, unspecified; G47.33 Obstructive sleep apnea (adult) (pediatric); E11.9 Type 2 diabetes mellitus without complications; Z79.84 Long term (current) use of oral hypoglycemic drugs; Z79.899 Other long term (current) drug therapy; Z99.89 Dependence on other enabling machines and devices; Z98.84 Bariatric surgery status
CPT/HCPCS: 45378; 82947; J2704

== ENCOUNTER → 2023-08-02 06:49 | Outpatient (BNV) | payer OTHER, SELFPAY | PROVIDERS: PCP Internal Medicine; Visit Provider Internal Medicine | DX: Z12.11 Encounter for screening for malignant neoplasm of colon (principal); K64.8 Other hemorrhoids | CPT/HCPCS: 45378 ==

== ENCOUNTER 2024-01-31 08:03 | Outpatient (AMB) | payer OTHER, SELFPAY ==
--- NOTE | 2024-01-31 08:07 | A.OFFPC_ITS ---
Vital Signs 01/31/24 08:08 Height 5 ft 2 in Weight 220 lb BMI 40.2 BP 110/76 Blood Pressure Location Lt brachial Position Sitting Pulse 74 Pulse Source Pulse Oximeter Pulse Oximetry (%) 96 Oxygen Delivery Method Room Air Intake Visit Reasons: annual exam [employer] Required: No Allergies No Known Allergies [No Known Allergies*] Allergy (Verified 01/31/24 08:19) Medication List - Last Reconciled 01/31/24 by Nikki Fields PA-C blood sugar diagnostic (FreeStyle Lite Strips) As directed check the BS QD [CPAP 13 cm FULL FACE MASK humidified AIR As directed] lancets (FreeStyle Lancets) As directed check BS QD lisinopril 2.5 mg PO DAILY metformin 500 mg PO BIDWMEAL Tobacco use date assessed: 01/31/24 Dental Screening Dental Screen Date: 01/31/24 Did you have a dental visit in the last 12 months?: Yes Did you have a dental problem in the last 6 months where you did not have access to dental care?: No Was dental information given to patient?: Patient has dentist HPI annual exam HPI Details 48-year-old obese male with past medical history of diabetes mellitus, GERD, hypercholesterolemia, hypertension last seen March 2023 coming in for annual exam. Patient completed colonoscopy July 2023 repeat colonoscopy in 10 years. Patient states he has been working on losing weight and known 18 lb weight loss since last visit. He has been working on exercising and improving his diet in an effort to decrease metformin and use of CPAP. He has yearly eye exams. He does mentioned 1 concern of right middle finger pain and clicking which has been present for the last 4 years. [facility] Medical History Hyperlipidemia Liver fibrosis Steatosis, liver Diaphragmatic hernia Sleep apnea GERD (gastroesophageal reflux disease) Hypertension Surgical History History of sleeve gastrectomy Hx of circumcision Hx of LASIK Family History Father No problems noted. Mother HTN (hypertension) Social History Housing: House Are you a primary customer care associate to a significant other at home: No Do you presently have visiting nurse or other home services: No Alcohol intake: never Patient Tobacco Use Status: Never used Tobacco e-Cigarette/Vaping Use: Never Used Second Hand Smoke Exposure: No service: No Current occupational status: employed Cognitive needs: No Hearing needs: No Vision needs: No Questionnaire PHQ-9 Over the last 2 weeks, how often have you been bothered by any of the following problems? 1. Little interest or pleasure in doing things: not at all 2. Feeling down, depressed, or hopeless: not at all 3. Trouble falling or staying asleep, or sleeping too much: not at all 4. Feeling tired or having little energy: not at all 5. Poor appetite or overeating: not at all 6. Feeling bad about yourself - or that you are a failure or have let yourself or your family down: not at all 7. Trouble concentrating on things, such as reading the newspaper or watching television: not at all 8. Moving or speaking so slowly that other people could have noticed. Or the opposite - being so fidgety or restless that you have been moving around a lot more than usual: not at all 9. Thoughts that you would be better off or of hurting yourself in some way: not at all Total score: 0 Depression Screening Interpretation: Negative Depression Screening Done: Yes 94896 - PHQ-9 Billing: Yes Source: Developed by Drs. Rafita Frazier, Leonarda Llamas, Eliseo Durham and colleagues, with an educational ignacio from [employer]. Thrive Questionnaire Date Thrive assessed: 01/31/24 I am a: Patient What is your living situation today?: I have a steady place to live Within the past 12 months, did the food you bought not last and you didn't have the money to get more?: Never true Within the past 12 months, did you worry whether your food would run out before you got money to buy more?: Never true Do you have trouble paying for medicines?: I choose not to answer this question Do you have trouble getting transportation to medical appointments?: No Do you have trouble paying your heating and electricity bill?: Yes Do you have trouble taking care of your child, family member or friend?: No Do you have trouble with day-to-day activities such as bathing, preparing meals, shopping, managing finances, etc.?: No Are you currently unemployed and looking for a job?: Yes Are you interested in more education?: No Please select the resources that you would like help with: Utilities Currently or been in a relationship where the following occur: No concerns reported THRIVE Score: 1 AUDIT C Alcohol Use Questionnaire (AUDIT-C) 1. How often do you have a drink containing alcohol?: Never 3. How often do you have six or more drinks on one occasion?: Never Total Score: 0 FORREST-7 AMB Questionnaire FORREST-7 Date FORREST - 7 assessed: 01/31/24 Feeling nervous, anxious, or on edge: 0 = Not at all Not being able to stop or control worryin = Not at all Worrying too much about different things: 0 = Not at all Trouble relaxin = Not at all Being so restless that it is hard to sit still: 0 = Not at all Becoming easily annoyed or irritable: 0 = Not at all Feeling afraid as if something awful might happen: 0 = Not at all Total FORREST-7 score (0-4 normal; 5-9 mild; 10-14 moderate; 15-21 severe): 0 Source: Developed by Drs. Rafita Frazier, Leonarda Llamas, Eliseo Druham and colleagues, with an educational ignacio from [employer]. FORREST-7 Assessment Billing FORREST-7 Assessment Tool: FORREST-7 Assessment 83533 Review of Systems Const Denies body aches, Denies fatigue, Denies fever(s), Denies frequent falls, Denies headache(s) and Denies weakness Eyes Reports no additional complaints and Denies change in vision ENT Denies dysphagia, Denies dizziness, Denies facial pain, Denies headache(s), Denies nasal congestion and Denies odynophagia Card Denies chest pain, Denies syncope, Denies irregular heart rhythm, Denies leg edema, Denies lightheadedness and Denies dyspnea Resp Denies cough and Denies dyspnea GI Denies abdominal pain, Denies constipation, Denies dysphagia, Denies dyspepsia, Denies diarrhea, Denies nausea, Denies odynophagia and Denies vomiting Denies dysuria, Denies urinary frequency, Denies urinary hesitancy and Denies urinary urgency Musc Denies back pain and Denies myalgias Skin/Breast Reports system reviewed and no additional complaints, except as documented Neuro Denies dizziness, Denies syncope, Denies frequent falls, Denies headache(s) and Denies weakness Psych Reports no additional complaints Endo Denies fatigue Physical exam (Primary Care) Vital Signs: Last Vital Signs Pulse 74 01/31/24 08:08 BP 110/76 01/31/24 08:08 Pulse Ox 96 01/31/24 08:08 Oxygen Delivery Method Room Air 01/31/24 08:08 BMI result Body Mass Index 40.2 Tobacco/Smoking Status: Tobacco use Status Tobacco use date assessed 01/31/24 01/31/24 08:09 Patient Tobacco Use Status Never used Tobacco 01/31/24 08:09 e-Cigarette/Vaping Use Never Used 01/31/24 08:09 PHQ-9: PHQ-9 Score PHQ-9: Total score 0 01/31/24 08:14 Depression Screening Interpretation: Negative Thrive Assessment: Date of Thrive Assessment Date Thrive assessed 01/31/24 01/31/24 08:14 Currently or been in a relationship where the following occur: No concerns reported Const General: cooperative, healthy appearing, comfortable and no acute distress Orientation/consciousness: patient oriented x3 HENMT Head: Yes normocephalic Ears: hearing grossly normal bilaterally, external ears normal, TM's normal bilaterally and EAC's normal General nose exam: Normal external nose present Face and sinus: Yes normal facial exam and Yes sinuses nontender Mouth: Normal oral and palatal mucosa present and tongue normal Throat: Yes posterior oropharynx normal Eyes General: appearance normal, both eyes and all related structures Conjunctivae: conjunctivae normal Pupils: Equal, round and reactive pupils present EOM: EOMs intact bilaterally and No Nystagmus present Neck Neck: Yes normal visual inspection, Yes full ROM and Yes no lymphadenopathy Chest Chest palpation & inspection: normal inspection of the chest Resp Effort & Inspection: normal respiratory effort Auscultation: clear to auscultation bilaterally, no crackles, no rales, no rhonchi, no wheezes and breath sounds present Cardio Rate: regular rate Rhythm: regular rhythm Peripheral pulses: radial pulses present and dorsalis pedis present GI Inspection: Yes normal to inspection and No Abdominal wall edema Palpation (GI): Soft to palpation, not firm and nontender Auscultation: normal bowel sounds Rectal Exam - Male: Yes deferred General: Yes no CVA tenderness Back/Spine/Pelvis Back: no CVA tenderness Skin General skin exam: no rashes or lesions noted Neuro General: patient oriented x3 Cranial nerves: Yes Equal, round and reactive pupils present, Yes Midline tongue present, Yes Ability to bilaterally elevate shoulders present and No Nystagmus present Gait exam (Neuro): Normal gait present Extrem General: Yes normal to inspection, Yes full ROM, No no pedal edema and No edema Psych Speech and movement: Normal speech and movement present Affect: normal affect Insight: Good insight present (Psych) Judgement: Good judgement present (Psych) Results AMB Hemoglobin A1c AMB Hemoglobin A1c 8.3 % Last Edit by AIDE Villavicencio on 01/31/24 08:17 Coding Level of Care Code Est Pt Prev Care 40-64y(69269) Diagnoses Colon cancer screening Z12.11 Obstructive sleep apnea G47.33 Hypercholesterolemia E78.00 Annual physical exam Z00.00 Type 2 diabetes mellitus with hyperglycemia E11.65 Obesity E66.9 GERD (gastroesophageal reflux disease) K21.9 Hypertension I10 Finger pain, right M79.644 Additional Codes FORREST-7 Assessment Billing - FORREST-7 Assessment Tool: FORREST-7 Assessment [id number] ([id number]) Assessment & Plan Assessment & Plan (1) Colon cancer screening: Comment: Index screening colonoscopy Code(s): Z12.11 - Encounter for screening for malignant neoplasm of colon Category: Medical Plan: Colonoscopy screening completed 07/2023 follow up in 10 years. (2) Obstructive sleep apnea: Comment: Follows with PCP Code(s): G47.33 - Obstructive sleep apnea (adult) (pediatric) Category: Medical Plan: Uses CPAP faithfully at least 4 hours a night and benefits from this therapy. (3) Hypercholesterolemia: Code(s): E78.00 - Pure hypercholesterolemia, unspecified Category: Medical Plan: Avoid foods that are high in cholesterol such as red meat, fried foods, eggs and baked goods. Triglyceride goal of less than 150 and LDL goal of less than 100. Not currently on medical management. Reminded about blood work. (4) Annual physical exam: Code(s): Z00.00 - Encounter for general adult medical examination without abnormal findings Category: Medical Plan: Patient is up-to-date on all recommended routine screenings and vaccinations for his age. Ordered for updated blood work and we will follow up in 3 months for follow up on diabetes. Patient was given MOLST and healthcare proxy forms to be filled out as his convenience. (5) Type 2 diabetes mellitus with hyperglycemia: Code(s): E11.65 - Type 2 diabetes mellitus with hyperglycemia Category: Medical Plan: Decrease the amount of carbohydrates such as pasta, bread, rice, and potatoes and limit the amount of sweets. Although fruits are generally healthy they should be eaten in moderation as they are still high in sugar. Hemoglobin A1c goal of less than 7%. A1c 8.3% today. Continue on metformin and we will add Jardiance to medication regimen and follow up in 3 months. (6) Obesity: Code(s): E66.9 - Obesity, unspecified Category: Medical Plan: Healthy diet and regular exercise is encouraged. Noted 18 lb weight loss. (7) GERD (gastroesophageal reflux disease): Code(s): K21.9 - Gastro-esophageal reflux disease without esophagitis Category: Medical Plan: Avoid trigger foods such as citrus, tomato products, soda, caffeine, spicy foods and other foods that may be irritating to your stomach. Avoid laying flat 3-4 hours after eating and elevate the head of the bed 30 degrees to prevent acid from moving into the esophagus. Not currently on medical management. (8) Hypertension: Code(s): I10 - Essential (primary) hypertension Category: Medical Plan: Patient has been without lisinopril 2.5 mg for over 6 months and blood pressure has remained stable. We will continue without medical management at this time and continue to monitor blood pressure. Follow up in 3 months. Avoid salt int demarco and encourage healthy diet and regular exercise. (9) Finger pain, right: Code(s): M79.644 - Pain in right finger(s) Category: Medical Plan: Right middle finger pain and clicking which has been present for 4 years. XR from two years ago was within normal limits. States his symptoms have not changed in the last several years. Referral placed for orthopedics for further evaluation. Plan This note was constructed using voice recognition software. While every effort has been made to ensure accuracy and grade recorder, still areas may have been included sometimes these areas may affect the content or meeting of the given symptoms. Total time spent caring for the patient today was 30 minutes. This includes time spent before the visit reviewing the chart, time spent during the visit, and time spent after the visit and documentation. Orders: Orders AMB Hemoglobin A1c Today E11.65 - Type 2 diabetes mellitus with hyperglycemia Comprehensive Met. Panel Today E11.65 - Type 2 diabetes mellitus with hyperglycemia Lipid Panel Today E11.65 - Type 2 diabetes mellitus with hyperglycemia, E78.00 - Pure hypercholesterolemia, unspecified Vitamin B12 and Folate Today Z00.00 - Encounter for general adult medical examination without abnormal findings Complete Blood Count Auto Diff Today E11.65 - Type 2 diabetes mellitus with hyperglycemia Thyroid Stimulating Hormone Today E11.65 - Type 2 diabetes mellitus with hyperglycemia Vitamin D 25-OH (D2 and D3) Today Z00.00 - Encounter for general adult medical examination without abnormal findings Microalbumin, Random (w Creat) Today E11.9 - Type 2 diabetes mellitus without complications UA CC w/rflx Micro + Cult Today R35.89 - Other polyuria Referrals Orthopedics Referral M79.644 - Pain in right finger(s) Medications: New empagliflozin (Jardiance) 10 mg PO DAILY 30 tabs 2RF On Hold lisinopril Hold Comment: Doctor's Order 2.5 mg PO DAILY 90 tabs 0RF
[2024-01-31 08:08] VITALS: BP 110/76; PULSE 74; O2SAT 96; BMI 40.2
== END 2024-01-31 08:37 | disposition home or self-care (01) ==
PROVIDERS: PCP Internal Medicine
DX: Z00.00 Encounter for general adult medical examination without abnormal findings (principal); E11.65 Type 2 diabetes mellitus with hyperglycemia; E66.9 Obesity, unspecified; Z68.41 Body mass index [BMI] 40.0-44.9, adult; Z12.11 Encounter for screening for malignant neoplasm of colon; G47.33 Obstructive sleep apnea (adult) (pediatric); E78.00 Pure hypercholesterolemia, unspecified; K21.9 Gastro-esophageal reflux disease without esophagitis; I10 Essential (primary) hypertension; M79.644 Pain in right finger(s)

== ENCOUNTER → 2024-01-31 08:03 | Outpatient (BNVA) | payer OTHER, SELFPAY | PROVIDERS: PCP Internal Medicine | DX: Z00.01 Encounter for general adult medical examination with abnormal findings (principal); G47.00 Insomnia, unspecified; E78.00 Pure hypercholesterolemia, unspecified; E11.65 Type 2 diabetes mellitus with hyperglycemia; E66.9 Obesity, unspecified; K21.9 Gastro-esophageal reflux disease without esophagitis; I10 Essential (primary) hypertension; M79.644 Pain in right finger(s) | CPT/HCPCS: 83036; 96127; 99396 ==

== ENCOUNTER 2024-02-27 10:05 | Outpatient (REF) | payer OTHER, SELFPAY ==
[2024-02-27 10:23] LABS: MANUAL DIFF FLAG NO
[2024-02-27 11:18] LABS: Basophils Absolute Auto 0.1 X10*3/uL (0.0-0.2); Basophils Percent Auto 0.7 % (0-2); Eosinophils Absolute Auto 0.1 X10*3/uL (0.0-0.4); Eosinophils Percent Auto 1.5 % (0-4); Hematocrit 47.7 % (42.0-52.0); Imm Gran Abs Auto 0.03 X10*3/uL (0.00-0.03); Imm Gran Pct Auto 0.4 % (0.0-0.4); Lymphocytes Absolute Auto 2.1 X10*3/uL (1.2-4.9); Lymphocytes Percent Auto 27.5 % (20-40); Mean Corpuscular HGB Conc 33.5 g/dl (31.0-36.0); Mean Corpuscular Hemoglobin 28.6 pg (27.0-33.0); Mean Corpuscular Volume 85.2 fL (80.0-98.0); Mean Platelet Volume 10.7 fL (9.4-12.4); Monocytes Absolute Auto 0.7 X10*3/uL (0.1-1.2); Monocytes Percent Auto 8.9 % (2-11); Neutrophils Absolute Auto 4.6 x10*3/uL (2.0-8.3); Platelet Count 243 X10*3/uL (160-400); Red Cell Distribution Width 12.7 % (11.0-16.0); White Blood Count 7.5 X10*3/uL (4.8-10.8)
[2024-02-27 11:18] LABS: Appearance Urine Clear; Color Urine Dark Yellow; Glucose Urine UA >=1000 mg/dL (Negative); Leukocyte Esterase Urine Negative (Negative); Nitrite Urine Negative (Negative); PH 5.5 (5.0-9.0); Specific Gravity - Urine 1.025 (1.005-1.025); UMIC TRIGGER UACC YES; Urine Blood Negative (Negative); Urine Ketones Trace mg/dL (Negative); Urine Protein Negative (Neg-Trace)
[2024-02-27 11:28] LABS: Bacteria Urine None Seen (None Seen); Hyaline Casts Urine 0-2 /LPF (0-2); RBC Urine 0-2 /HPF (0-2); Squamous Epithelial Cell Urine 0-2 /HPF (0-2); WBC Urine 0-5 /HPF (0-5)
[2024-02-27 12:18] LABS: Alanine Aminotransferase 46 U/L (0-40); Albumin Level 4.4 g/dL (3.5-5.0); Alkaline Phosphatase 80 U/L (39-117); Anion Gap 12 (12-20); Aspartate Amino Transferase 29 U/L (5-37); Bilirubin Total 1.1 mg/dL (0.0-1.0); Blood Urea Nitrogen 17 mg/dL (9-16); Calcium 9.9 mg/dL (8.4-10.2); Carbon Dioxide 28 mmol/L (22-29); Chloride 105 mmol/L (96-108); Cholesterol 209 mg/dL (<200); Estimated Glomerular Filt Rate 56; Glucose Random 93 mg/dL (60-115); HDL Cholesterol 44 mg/dL (>40); LDL Cholesterol Calculated 138 mg/dL (<100); Potassium 3.9 mmol/L (3.3-5.1); Sodium 141 mmol/L (135-145); Thyroid Stimulating Hormone 0.97 uIU/mL (0.32-4.0); Total Protein 7.7 g/dL (6.5-8.0); Triglycerides 138 mg/dL (<150)
[2024-02-27 12:18] LABS: Creatinine Urine 250.75 mg/dL; Microalbum/Creatinine Ratio Ur 2.7 ug/mg cr (<30)
[2024-02-27 12:30] LABS: Folate 7.5 ng/mL (> or = 4.0); Vitamin B12 493 pg/mL (200-900)
[2024-03-04 15:52] LABS: Vitamin D 25-OH, D2 <4 ng/mL; Vitamin D 25-OH, D3 20 ng/mL; Vitamin D 25-OH, Total 20 ng/mL (30-100)
== END 2024-02-27 10:06 | disposition home or self-care (01) ==
LOC: HO.LAB 10:05
PROVIDERS: PCP Internal Medicine
DX: E78.00 Pure hypercholesterolemia, unspecified (principal); E11.65 Type 2 diabetes mellitus with hyperglycemia; Z00.00 Encounter for general adult medical examination without abnormal findings
CPT/HCPCS: 36415; 80053; 80061; 81001; 82043; 82306; 82570; 82607; 82746; 84443; 85025

== ENCOUNTER 2024-02-29 08:19 | Outpatient (REF) | payer OTHER, SELFPAY | END 2024-02-29 08:20 | disposition home or self-care (01) | LOC: HO.HOSX 08:19 | PROVIDERS: PCP Internal Medicine | DX: M79.641 Pain in right hand (principal) | CPT/HCPCS: 73130; 99202 ==

== ENCOUNTER 2024-02-29 08:19 | Outpatient (AMB) | payer OTHER, SELFPAY ==
--- NOTE | 2024-02-29 08:31 | MHC.OFFVIS ---
Vital Signs 02/29/24 08:32 Height 5 ft 4 in Weight 213 lb BMI 36.6 Handedness Ambidextrous Intake Visit Reasons: [employer]-Right middle finger pain and clicking Intake Note: Lio is a 48 year old ambidextrous male who presents today as a new patient with complaints of right middle finger pain and clicking that has been going on for roughly 4 years. Patient reports each time he bends his right 3rd digit it makes a clicking noise. Denies locking. He expresses pain when he makes a full closed fist. 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 Denies numbness and tingling. Denies past injury to right middle finger. Allergies No Known Allergies [No Known Allergies*] Allergy (Verified 02/29/24 08:33) HPI HPI [employer]-Right middle finger pain and clicking: Details: Patient is a 48-year-old male presents for evaluation of right middle finger pain with associated clicking, ongoing for several years. The patient states that his fingers do not lock or catch, but there is audible and palpable clicking of the right middle finger when he flexes it. The patient reports that his only pain is when his hand is held in flexion. 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 Patient states that he feels that this started when he punched the steering wheel of his truck in order to get his finger to crack. Patient denies any numbness or tingling in the right upper extremity. No other acute complaints or concerns at this time. [facility] Medical History Hyperlipidemia Liver fibrosis Steatosis, liver Diaphragmatic hernia Sleep apnea GERD (gastroesophageal reflux disease) Hypertension Surgical History History of sleeve gastrectomy Hx of circumcision Hx of LASIK Family History Father No problems noted. Mother HTN (hypertension) Social History Housing: House Are you a primary animal care supervisor to a significant other at home: No Do you presently have visiting nurse or other home services: No Alcohol intake: never Patient Tobacco Use Status: Never used Tobacco e-Cigarette/Vaping Use: Never Used Second Hand Smoke Exposure: No service: No Current occupational status: employed Cognitive needs: No Hearing needs: No Vision needs: No Review of Systems Const All systems reviewed & are unremarkable except as noted in HPI and below Physical Exam Vital Signs: BMI result Body Mass Index 36.6 Extrem Other: Patient is alert, oriented, and in no acute distress. Neuro: Normal sensation of the tips of all digits of the right hand at this time Vascular: Cap refill brisk Pain: Patient does report pain in the MCP joint with range of motion testing of the right hand no tenderness to palpation to the MCP, PIP, DIP joints of the right middle finger No other tenderness to palpation of the right hand or wrist noted ROM: Patient is able to make a closed fist and extend all digits of the right hand fully No visible or palpable locking and catching of the right middle finger, however there is visible and audible clicking No visible or palpable lateralization of the extensor tendons with flexion of the finger Skin: No lacerations or abrasions. General: No ecchymosis, erythema, or evidence of infection. Psych: Appears grossly normal Affect normal Attitude cooperative Results Reviewed Results Reviewed: X-rays obtained in the office today and independently reviewed by me, Kwaku Thomas PA-C, demonstrate no fracture or acute bony abnormality of the right hand. Assessment & Plan Assessment & Plan (1) Finger pain, right: Code(s): M79.644 - Pain in right finger(s) Category: Medical Plan 1. pain and clicking of right middle finger Ongoing for approximately 4 years At this time, patient was referred to Dr. Corona for evaluation of potential sagittal band injury of the right middle finger Patient is also referred to occupational therapy for range of motion strengthening of the right hand Patient was amenable to this plan Patient will follow-up with Dr. Corona for next available appointment, sooner with any acute concerns Orders: Orders XR hand RT min 3V Today M79.641 - Pain in right hand OT Evaluation and Treatment Today M79.644 - Pain in right finger(s) Coding Level of Care Code New Pt Level 3 (06298) Diagnoses Finger pain, right M79.644
[2024-02-29 08:32] VITALS: BMI 36.6
== END 2024-02-29 09:14 | disposition home or self-care (01) ==
PROVIDERS: PCP Internal Medicine
DX: M79.644 Pain in right finger(s) (principal)
CPT/HCPCS: 99203

== ENCOUNTER 2024-03-14 08:18 | Outpatient (RCR) | payer OTHER, SELFPAY | END 2024-09-30 15:01 | disposition home or self-care (01) | LOC: HO.OT 08:18 | PROVIDERS: PCP Internal Medicine | DX: M79.644 Pain in right finger(s) (principal) | CPT/HCPCS: 97165; 97166; 97760 ==

== ENCOUNTER 2024-04-01 09:18 | Outpatient (AMB) | payer OTHER, SELFPAY ==
[2024-04-01 09:57] VITALS: BMI 36.6
--- NOTE | 2024-04-01 09:57 | A.OFFVIS_ITS ---
Vital Signs 04/01/24 09:57 Height 5 ft 4 in Weight 213 lb BMI 36.6 Intake Visit Reasons: OV-Sagittal band Intake Note: Lio 48 yr old male right hand dominant male presents today for a follow up visit for his right middle finger. Seen with Vin Ames 03/10/24 who wants patient to be re-evaluated for potential sagittal band injury to the right middle finger. Currently patient states he is having difficulty making a close fist and extending his finger. Patient was also referred to occupational therapy for range of motion strengthening of the right hand also he was made a custom splint and tries to wear it offer however it makes his finger stiff. t hand. Allergies No Known Allergies [No Known Allergies*] Allergy (Verified 04/01/24 09:58) HPI HPI OV-Sagittal band: Details: The pain is is a 48-year-old [id number] man who was seen today with his . He complains of some pain and clicking in his right hand that has been present for about 6 years. It is mostly over the 3rd MCP joint. PFSH Medical History Hyperlipidemia Liver fibrosis Steatosis, liver Diaphragmatic hernia Sleep apnea GERD (gastroesophageal reflux disease) Hypertension Surgical History History of sleeve gastrectomy Hx of circumcision Hx of LASIK Family History Father No problems noted. Mother HTN (hypertension) Social History Housing: House Are you a primary resident care provider to a significant other at home: No Do you presently have visiting nurse or other home services: No Alcohol intake: never Patient Tobacco Use Status: Never used Tobacco e-Cigarette/Vaping Use: Never Used Second Hand Smoke Exposure: No service: No Current occupational status: employed Cognitive needs: No Hearing needs: No Vision needs: No Physical Exam Vital Signs: BMI result Body Mass Index 36.6 Extrem Other: The patient was alert oriented and in no acute distress. He can actively extend all of his digits, and he can actively bring them close to a fist. Initially the index and middle fingers could not quite get down to a fist, but we worked on range of motion exercises and he was then able to actively bring them into a full fist. No locking or catching No subluxation of the extensor mechanism with finger flexion to a fist Mild tenderness over the 3rd MCP joint and also with stressing the intermetacarpal ligaments between the metacarpal heads. Not particularly tender over the A1 ajay No locking or catching or other indications of trigger finger. Radiographs: Three views of the right hand 02/29/2024 was reviewed by me today. I see no fractures or dislocations. He does have some early arthritic changes in the 2nd 3rd and 4th MCP joints. Assessment & Plan Assessment & Plan (1) Finger pain, right: Code(s): M79.644 - Pain in right finger(s) Category: Medical (2) Arthritis of right hand: Code(s): M19.041 - Primary osteoarthritis, right hand Category: Medical Plan Assessment and plan: 1. 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 I educated the patient in his about this condition I do not see any operative indications or indications for injection today. It is possible that he may benefit from an injection into the 3rd MCP joint, and I talked to him at length about the uses for such a steroid injection. In the meantime he is going to focus on range of motion in preventing stiffness. I also talked about possible adaptations on either to his equipment with the way he uses the equipment with his right hand to minimize symptoms. I gave him my card and he will follow up p.r.n. Coding Level of Care Code Est Pt Level 3 (34142) Diagnoses Finger pain, right M79.644 Arthritis of right hand M19.041
== END 2024-04-01 11:01 | disposition home or self-care (01) ==
PROVIDERS: PCP Internal Medicine; Visit Provider Orthopaedic Surgery
DX: M79.644 Pain in right finger(s) (principal); M19.041 Primary osteoarthritis, right hand
CPT/HCPCS: 99213

== ENCOUNTER → 2024-04-01 09:18 | Outpatient (BNVA) | payer OTHER, SELFPAY | PROVIDERS: PCP Internal Medicine; Visit Provider Orthopaedic Surgery | DX: M19.041 Primary osteoarthritis, right hand (principal); M79.644 Pain in right finger(s) | CPT/HCPCS: 99212 ==

== ENCOUNTER 2024-05-02 08:23 | Outpatient (AMB) | payer OTHER, SELFPAY ==
[2024-05-02 08:34] VITALS: BP 120/76; PULSE 78; TEMP 36.3; O2SAT 96; BMI 37.6
--- NOTE | 2024-05-02 08:34 | MHC.PC.OV ---
Vital Signs 05/02/24 08:34 Height 5 ft 4 in Weight 219 lb 2 oz BMI 37.6 BP 120/76 Blood Pressure Location Lt brachial Position Sitting Pulse 78 Pulse Source Pulse Oximeter Temp 97.3 F Temp Source Skin Pulse Oximetry (%) 96 Oxygen Delivery Method Room Air Intake Visit Reasons: f/u DM Intake Note: Patient is here to follow up on DM. Squeak Rattle And Leak Repairer Required: No Manager Nc: Not Required per policy Accompanied by: Self / Same As Patient Allergies No Known Allergies [No Known Allergies*] Allergy (Verified 05/02/24 08:35) Medication List - Last Reconciled 05/02/24 by Nikki Fields PA-C atorvastatin 10 mg PO BEDTIME blood sugar diagnostic (FreeStyle Lite Strips) As directed check the BS QD cholecalciferol (vitamin D3) 25 mcg PO DAILY [CPAP 13 cm FULL FACE MASK humidified AIR As directed] empagliflozin (Jardiance) 10 mg PO DAILY lancets (FreeStyle Lancets) As directed check BS QD metformin 500 mg PO BIDWMEAL Tobacco use date assessed: 05/02/24 Dental Screening Dental Screen Date: 05/02/24 Did you have a dental visit in the last 12 months?: No Did you have a dental problem in the last 6 months where you did not have access to dental care?: No Was dental information given to patient?: Patient has dentist HPI f/u DM HPI Details 48-year-old obese male with past medical history of diabetes mellitus, GERD, hypercholesterolemia, hypertension last seen January 2024 coming in for follow up.? In review of the notes, patient was seen by Orthopedics for right hand pain commended injection and follow up as needed.? Patient tells us today he is feeling generally well and has no acute concerns. He has been working on diet modification for diabetes and cutting out carbs. He does not regularly exercise says he works long hours. [facility] Medical History Hyperlipidemia Liver fibrosis Steatosis, liver Diaphragmatic hernia Sleep apnea GERD (gastroesophageal reflux disease) Hypertension Surgical History History of sleeve gastrectomy Hx of circumcision Hx of LASIK Family History Father No problems noted. Mother HTN (hypertension) Social History Housing: House Are you a primary healthcare consulting manager to a significant other at home: No Do you presently have visiting nurse or other home services: No Alcohol intake: never Patient Tobacco Use Status: Never used Tobacco Tobacco use type: Cigarette e-Cigarette/Vaping Use: Never Used Second Hand Smoke Exposure: No service: No Current occupational status: employed Cognitive needs: No Hearing needs: No Vision needs: No Questionnaire PHQ-9 Over the last 2 weeks, how often have you been bothered by any of the following problems? 1. Little interest or pleasure in doing things: not at all 2. Feeling down, depressed, or hopeless: not at all 3. Trouble falling or staying asleep, or sleeping too much: not at all 4. Feeling tired or having little energy: not at all 5. Poor appetite or overeating: not at all 6. Feeling bad about yourself - or that you are a failure or have let yourself or your family down: not at all 7. Trouble concentrating on things, such as reading the newspaper or watching television: not at all 8. Moving or speaking so slowly that other people could have noticed. Or the opposite - being so fidgety or restless that you have been moving around a lot more than usual: not at all 9. Thoughts that you would be better off or of hurting yourself in some way: not at all Total score: 0 Depression Screening Interpretation: Negative Depression Screening Done: Yes 37698 - PHQ-9 Billing: Yes Source: Developed by Drs. Rafita Frazier, Leonarda Llamas, Eliseo Durham and colleagues, with an educational ignacio from [employer]. Thrive Questionnaire Date Thrive assessed: 05/02/24 AUDIT C Alcohol Use Questionnaire (AUDIT-C) 1. How often do you have a drink containing alcohol?: Never 3. How often do you have six or more drinks on one occasion?: Never Total Score: 0 FORREST-7 AMB Questionnaire FORREST-7 Date FORREST - 7 assessed: 05/02/24 Feeling nervous, anxious, or on edge: 0 = Not at all Not being able to stop or control worryin = Not at all Worrying too much about different things: 0 = Not at all Trouble relaxin = Not at all Being so restless that it is hard to sit still: 0 = Not at all Becoming easily annoyed or irritable: 0 = Not at all Feeling afraid as if something awful might happen: 0 = Not at all Total FORREST-7 score (0-4 normal; 5-9 mild; 10-14 moderate; 15-21 severe): 0 Source: Developed by Drs. Rafita Frazier, Leonarda Llamas, Eliseo Durham and colleagues, with an educational ignacio from [employer]. FORREST-7 Assessment Billing FORREST-7 Assessment Tool: FORREST-7 Assessment 59928 Review of Systems Const Denies body aches, Denies chills, Denies fever(s), Denies headache(s) and Denies poor appetite Eyes Reports no additional complaints ENT Denies dizziness and Denies headache(s) Card Denies chest pain, Denies lightheadedness and Denies dyspnea Resp Denies cough and Denies dyspnea GI Denies abdominal pain, Denies nausea and Denies vomiting Reports no additional complaints Musc Reports no additional complaints and Denies abnormal gait Skin/Breast Reports system reviewed and no additional complaints, except as documented Neuro Denies abnormal gait, Denies dizziness and Denies headache(s) Psych Reports no additional complaints Physical exam (Primary Care) Vital Signs: Oxygen Delivery Method Room Air 05/02/24 08:34 Tobacco/Smoking Status: Tobacco use Status Tobacco use date assessed 05/02/24 05/02/24 08:36 Patient Tobacco Use Status Never used Tobacco 05/02/24 08:35 Tobacco use type Cigarette 05/02/24 08:36 e-Cigarette/Vaping Use Never Used 05/02/24 08:35 PHQ-9: PHQ-9 Score PHQ-9: Total score 0 05/02/24 08:36 Depression Screening Interpretation: Negative Thrive Assessment: Date of Thrive Assessment Date Thrive assessed 05/02/24 05/02/24 08:35 Const General: cooperative, healthy appearing, comfortable and no acute distress Orientation/consciousness: patient oriented x3 HENMT Head: Yes normocephalic Ears: hearing grossly normal bilaterally General nose exam: Normal external nose present Eyes General: appearance normal, both eyes and all related structures Conjunctivae: conjunctivae normal Neck Neck: Yes full ROM and Yes no lymphadenopathy Resp Effort & Inspection: normal respiratory effort Auscultation: clear to auscultation bilaterally, no crackles, no rales, no rhonchi and no wheezes Cardio Rate: regular rate Rhythm: regular rhythm Skin General skin exam: no rashes or lesions noted Neuro General: patient oriented x3 Gait exam (Neuro): Normal gait present Extrem General: Yes normal to inspection, Yes full ROM and No edema Psych Affect: normal affect Attitude: cooperative Insight: Good insight present (Psych) Judgement: Good judgement present (Psych) Results AMB Hemoglobin A1c AMB Hemoglobin A1c 6.6 % Last Edit by AIDE Ansari on 05/02/24 08:53 Coding Level of Care Code Est Pt Level 4 (43543) Diagnoses Hypercholesterolemia E78.00 Type 2 diabetes mellitus with hyperglycemia E11.65 Obesity E66.9 Sleep apnea G47.30 GERD (gastroesophageal reflux disease) K21.9 Hypertension I10 Additional Codes FORREST-7 Assessment Billing - FORREST-7 Assessment Tool: FORREST-7 Assessment 42296 ([id number]) PHQ-9 - 97990 - PHQ-9 Billing: Yes ([id number]) Assessment & Plan Assessment & Plan (1) Hypercholesterolemia: Code(s): E78.00 - Pure hypercholesterolemia, unspecified Category: Medical Plan: Avoid foods that are high in cholesterol such as red meat, fried foods, eggs and baked goods. Triglyceride goal of less than 150 and LDL goal of less than 100. ASCVD risk 4.3% recommending moderate intensity statin. We will start on atorvastatin 10 mg for management of LDL redraw labs in 3 months. (2) Type 2 diabetes mellitus with hyperglycemia: Code(s): E11.65 - Type 2 diabetes mellitus with hyperglycemia Category: Medical Plan: Decrease the amount of carbohydrates such as pasta, bread, rice, and potatoes and limit the amount of sweets. Although fruits are generally healthy they should be eaten in moderation as they are still high in sugar. Hemoglobin A1c goal of less than 7%. A1c in the clinic today 6.6% improved since last visit. Advised patient to continue on current medication regimen and continue to work on dietary modification and exercise. (3) Obesity: Code(s): E66.9 - Obesity, unspecified Category: Medical Plan: Healthy diet and regular exercise is encouraged. (4) Sleep apnea: Code(s): G47.30 - Sleep apnea, unspecified Category: Medical Plan: Uses CPAP faithfully at least 4 hours a night and benefits from this therapy. (5) GERD (gastroesophageal reflux disease): Code(s): K21.9 - Gastro-esophageal reflux disease without esophagitis Category: Medical Plan: Avoid trigger foods such as citrus, tomato products, soda, caffeine, spicy foods and other foods that may be irritating to your stomach. Avoid laying flat 3-4 hours after eating and elevate the head of the bed 30 degrees to prevent acid from moving into the esophagus. (6) Hypertension: Code(s): I10 - Essential (primary) hypertension Category: Medical Plan: Not currently on blood pressure management. Avoid salt intake and encourage healthy diet and regular exercise. Plan This note was constructed using voice recognition software. While every effort has been made to ensure accuracy and insulation worker, still areas may have been included sometimes these areas may affect the content or meeting of the given symptoms. Total time spent caring for the patient today was 30 minutes. This includes time spent before the visit reviewing the chart, time spent during the visit, and time spent after the visit and documentation. Orders: Orders Hemoglobin A1c 3 Months E11.65 - Type 2 diabetes mellitus with hyperglycemia AMB Hemoglobin A1c Today Z13.9 - Encounter for screening, unspecified Lipid Panel 3 Months E78.00 - Pure hypercholesterolemia, unspecified Medications: New atorvastatin 10 mg PO BEDTIME 90 tabs 1RF Refilled empagliflozin (Jardiance) 10 mg PO DAILY 90 tabs 2RF
== END 2024-05-02 09:05 | disposition home or self-care (01) ==
PROVIDERS: PCP Internal Medicine
DX: E78.00 Pure hypercholesterolemia, unspecified (principal); E11.65 Type 2 diabetes mellitus with hyperglycemia; E66.9 Obesity, unspecified; Z68.37 Body mass index [BMI] 37.0-37.9, adult; G47.30 Sleep apnea, unspecified; K21.9 Gastro-esophageal reflux disease without esophagitis; I10 Essential (primary) hypertension

== ENCOUNTER → 2024-05-02 08:23 | Outpatient (BNVA) | payer OTHER, SELFPAY | PROVIDERS: PCP Internal Medicine | DX: E11.65 Type 2 diabetes mellitus with hyperglycemia (principal); E66.9 Obesity, unspecified; K21.9 Gastro-esophageal reflux disease without esophagitis; E78.00 Pure hypercholesterolemia, unspecified; I10 Essential (primary) hypertension; G47.30 Sleep apnea, unspecified; Z68.37 Body mass index [BMI] 37.0-37.9, adult | CPT/HCPCS: 83036; 96127; 99212 ==

== ENCOUNTER 2024-12-02 09:51 | Outpatient (AMB) | payer OTHER, SELFPAY ==
--- NOTE | 2024-12-02 09:53 | MHC.PC.OV ---
Vital Signs 12/02/24 09:55 Height 5 ft 4 in Weight 214 lb 2 oz BMI 36.8 BP 120/78 Blood Pressure Location Lt brachial Position Sitting Pulse 78 Pulse Source Pulse Oximeter Temp 97.3 F Temp Source Temporal Artery Scan Pulse Oximetry (%) 94 Oxygen Delivery Method Room Air Intake Visit Reasons: weight management Intake Note: Patient is here to follow up on Weight management. Belt Loop Machine Operator Required: No Shovel Handle Assembler: Not Required per policy Accompanied by: Self / Same As Patient Allergies No Known Allergies (No Known Allergies*) Allergy (Verified 12/02/24 09:55) Tobacco use date assessed: 12/02/24 Dental Screening Dental Screen Date: 05/02/24 [facility] Medical History Hyperlipidemia Liver fibrosis Steatosis, liver Diaphragmatic hernia Sleep apnea GERD (gastroesophageal reflux disease) Hypertension Surgical History History of sleeve gastrectomy Hx of circumcision Hx of LASIK Family History Father No problems noted. Mother HTN (hypertension) Social History (Updated 12/02/24 @ 10:01 by AIDE Ansari) Housing: House Are you a primary patient care representative to a significant other at home: No Do you presently have visiting nurse or other home services: No Alcohol intake: current Alcohol intake frequency: a few times a week Alcohol type: beer Patient Tobacco Use Status: Never used Tobacco Tobacco use type: Cigarette e-Cigarette/Vaping Use: Never Used Second Hand Smoke Exposure: No service: No Current occupational status: employed Cognitive needs: No Hearing needs: No Vision needs: No Questionnaire PHQ-9 Over the last 2 weeks, how often have you been bothered by any of the following problems? 1. Little interest or pleasure in doing things: not at all 2. Feeling down, depressed, or hopeless: not at all 3. Trouble falling or staying asleep, or sleeping too much: not at all 4. Feeling tired or having little energy: not at all 5. Poor appetite or overeating: not at all 6. Feeling bad about yourself - or that you are a failure or have let yourself or your family down: not at all 7. Trouble concentrating on things, such as reading the newspaper or watching television: not at all 8. Moving or speaking so slowly that other people could have noticed. Or the opposite - being so fidgety or restless that you have been moving around a lot more than usual: not at all 9. Thoughts that you would be better off or of hurting yourself in some way: not at all Total score: 0 Depression Screening Interpretation: Negative Depression Screening Done: Yes Source: Developed by Drs. Rafita Frazier, Leonarda Llamas, Eliseo Durham and colleagues, with an educational ignacio from [email or web address]. Thrive Questionnaire Date Thrive assessed: 12/01/24 I am a: Patient What is your living situation today?: I have a steady place to live Within the past 12 months, did the food you bought not last and you didn't have the money to get more?: I choose not to answer this question Within the past 12 months, did you worry whether your food would run out before you got money to buy more?: I choose not to answer this question Do you have trouble paying for medicines?: I choose not to answer this question Do you have trouble getting transportation to medical appointments?: I choose not to answer this question Do you have trouble paying your heating and electricity bill?: No Do you have trouble taking care of your child, family member or friend?: No Do you have trouble with day-to-day activities such as bathing, preparing meals, shopping, managing finances, etc.?: No Are you currently unemployed and looking for a job?: No Are you interested in more education?: No Please select the resources that you would like help with: Paying for medicine Currently or been in a relationship where the following occur: I choose not to answer THRIVE Score: 0 AUDIT C Alcohol Use Questionnaire (AUDIT-C) 1. How often do you have a drink containing alcohol?: 2-4 times a month 2. How many drinks containing alcohol do you have on a typical day when you are drinking?: 1 or 2 3. How often do you have six or more drinks on one occasion?: Never Total Score: 2 FORREST-7 AMB Questionnaire FORREST-7 Date FORREST - 7 assessed: 05/02/24 Feeling nervous, anxious, or on edge: 0 = Not at all Not being able to stop or control worryin = Not at all Worrying too much about different things: 0 = Not at all Trouble relaxin = Not at all Being so restless that it is hard to sit still: 0 = Not at all Becoming easily annoyed or irritable: 0 = Not at all Feeling afraid as if something awful might happen: 0 = Not at all Total FORREST-7 score (0-4 normal; 5-9 mild; 10-14 moderate; 15-21 severe): 0 Source: Developed by Drs. Rafita Frazier, Leonarda Llamas, Eliseo Durham and colleagues, with an educational ignacio from [email or web address]. Physical exam (Primary Care) Vital Signs: Last Vital Signs Temp 97.3 F 12/02/24 09:55 Pulse 78 12/02/24 09:55 BP 120/78 12/02/24 09:55 Pulse Ox 94 12/02/24 09:55 Oxygen Delivery Method Room Air 12/02/24 09:55 BMI result Body Mass Index 36.8 Tobacco/Smoking Status: Tobacco use Status Tobacco use date assessed 12/02/24 12/02/24 10:02 Patient Tobacco Use Status Never used Tobacco 12/02/24 10:01 Tobacco use type Cigarette 12/02/24 10:01 e-Cigarette/Vaping Use Never Used 12/02/24 10:01 PHQ-9: PHQ-9 Score PHQ-9: Total score 0 12/02/24 10:13 Depression Screening Interpretation: Negative Thrive Assessment: Date of Thrive Assessment Date Thrive assessed 12/01/24 12/02/24 09:53 Currently or been in a relationship where the following occur: I choose not to answer Const General: alert; No acute distress Eyes Conjunctivae: conjunctivae normal Resp Auscultation: clear to auscultation bilaterally Cardio Rate: regular rate Rhythm: regular rhythm GI Inspection: Yes normal to inspection Extrem General: Yes normal to inspection and No edema Results AMB Hemoglobin A1c AMB Hemoglobin A1c 6.6 % Last Edit by AIDE Ansari on 12/02/24 10:07 Results Reviewed Results Reviewed: Laboratory Last Values Hgb A1c (Clinic) 6.6 % (4.0-6.0) H 12/02/24 09:54 Coding Level of Care Code Est Pt Level 4 (72044) Complex EM visit Add On G2211 Diagnoses Type 2 diabetes mellitus with hyperglycemia E11.65 Hypertension I10 Hypercholesterolemia E78.00 Obesity E66.9 History of sleeve gastrectomy Z90.3 GERD (gastroesophageal reflux disease) K21.9 Colon cancer screening Z12.11 Obstructive sleep apnea G47.33 Assessment & Plan Assessment & Plan (1) Type 2 diabetes mellitus with hyperglycemia: Comment: Ophthalmology Code(s): E11.65 - Type 2 diabetes mellitus with hyperglycemia Category: Medical Plan: Decrease the amount of carbohydrate intake, pasta, bread, rice and potatoes are all sugar and that is aside from all the sweet stuff, remember that fruits are good but they are Sweet also. Hemoglobin A1c goal of less than 6.5. Patient on Jardiance 10 mg once a day metformin 500 mg twice a day patient is reminded about the Ophthalmology (2) Hypertension: Code(s): I10 - Essential (primary) hypertension Category: Medical Plan: Continue with blood pressure medication. Decrease salt intake and exercise patient presently is on no medication blood pressure is good (3) Hypercholesterolemia: Code(s): E78.00 - Pure hypercholesterolemia, unspecified Category: Medical Plan: Avoid fried foods, chicken skin, eggs, butter margarine, pastries and meat. Be it pork or beef they have a lot of cholesterol LDL goal of less than 100 and triglyceride of less than 150. Patient needs blood work last blood work not controlled last year patient is on atorvastatin 10 mg once a day (4) Obesity: Code(s): E66.9 - Obesity, unspecified Category: Medical Plan: Diet and exercise (5) History of sleeve gastrectomy: Comment: 01/27/2020 Code(s): Z90.3 - Acquired absence of stomach [part of] Category: Surgical Plan: Continue follow-up with bariatric (6) GERD (gastroesophageal reflux disease): Code(s): K21.9 - Gastro-esophageal reflux disease without esophagitis Category: Medical Plan: Avoid the foods that causes that usually spicy foods, tomato products, juices, coffee, soda and foods that your sensitive to. After eating do not lie down, allow 3-4 hours before in lie down. And keep the head of bed above 30 degrees to avoid the acid from going up. (7) Colon cancer screening: Comment: Index screening colonoscopy Code(s): Z12.11 - Encounter for screening for malignant neoplasm of colon Category: Medical Plan: Patient is reminded about colon cancer screening (8) Obstructive sleep apnea: Comment: Follows with PCP Code(s): G47.33 - Obstructive sleep apnea (adult) (pediatric) Category: Medical Plan: Continue to use the CPAP more than 4 hours a night and benefits from this Plan History of Present Illness The patient is a 49-year-old male presenting for a follow-up visit. He has a history of obesity, diabetes mellitus, gastroesophageal reflux disease, hypertension, obstructive sleep apnea, and hepatic steatosis. The patient has been managing diabetes mellitus with Jardiance 10 mg once daily and metformin 500 mg twice daily. His hemoglobin A1c was recorded at 6.6, with a goal of reducing it to below 6.5. He is advised to continue with his current medication regimen and consider increasing Jardiance dosage if necessary. The patient has a history of hyperlipidemia, with an LDL cholesterol level of 138 mg/dL, which is above the target of less than 100 mg/dL. He is currently on atorvastatin 10 mg once daily and is advised to continue monitoring his cholesterol levels. The patient has obstructive sleep apnea and uses a CPAP machine for more than 4 hours a night, which he finds beneficial. He is reminded to maintain adherence to CPAP therapy to manage his condition effectively. The patient is due for a colonoscopy as part of his preventative care measures. He is also reminded of the importance of regular ophthalmology visits due to his diabetes. Health Maintenance - Colonoscopy is due for preventative screening. - Regular ophthalmology visits are recommended due to diabetes. - Continued use of CPAP for obstructive sleep apnea management. Social History - Exercise: Encouraged to improve activity levels and dietary habits. Review of Systems Physical Exam Results - Labs: Hemoglobin A1c is 6.6. - Labs: LDL cholesterol is 138 mg/dL. - Labs: Elevated liver enzymes noted. - Labs: Vitamin D is low. - Labs: Renal function is 1.37. Plan Patient was informed and verbally consented to the use of an ambient scribe for clinic note documentation during this visit. 1. Diabetes Mellitus The patient is currently managing diabetes mellitus with Jardiance 10 mg once daily and metformin 500 mg twice daily. The goal is to reduce hemoglobin A1c to below 6.5, with the current level at 6.6. Consideration is given to increasing the Jardiance dosage to improve glycemic control. 2. Hyperlipidemia The patient has hyperlipidemia with an LDL cholesterol level of 138 mg/dL, above the target of less than 100 mg/dL. He is on atorvastatin 10 mg once daily and is advised to continue monitoring cholesterol levels. 3. Obstructive Sleep Apnea The patient uses a CPAP machine for more than 4 hours a night, which he finds beneficial. Continued adherence to CPAP therapy is recommended to manage obstructive sleep apnea effectively. 4. Preventative Care The patient is due for a colonoscopy as part of preventative care measures. Regular ophthalmology visits are recommended due to diabetes. Discussion Notes During the visit, we discussed the management of diabetes mellitus, emphasizing the importance of maintaining hemoglobin A1c below 6.5. We considered increasing the Jardiance dosage to achieve better glycemic control. For hyperlipidemia, the patient is advised to continue atorvastatin and monitor cholesterol levels. We also discussed the benefits of CPAP therapy for obstructive sleep apnea and the need for adherence. Preventative care measures include scheduling a colonoscopy and regular ophthalmology visits due to diabetes. Patient Instructions - Continue taking Jardiance 10 mg once daily and metformin 500 mg twice daily for diabetes management. - Monitor blood sugar levels regularly and aim to keep hemoglobin A1c below 6.5. - Continue taking atorvastatin 10 mg once daily and monitor cholesterol levels. - Use CPAP machine for more than 4 hours each night for obstructive sleep apnea. - Schedule a colonoscopy as part of preventative care. - Attend regular ophthalmology visits due to diabetes. - Maintain a healthy diet and exercise regularly to manage weight and improve overall health. Orders: Orders Comprehensive Met. Panel Today E11.65 - Type 2 diabetes mellitus with hyperglycemia AMB Hemoglobin A1c Today E11.65 - Type 2 diabetes mellitus with hyperglycemia Lipid Panel Today E78.00 - Pure hypercholesterolemia, unspecified Medications: New tirzepatide (Mounjaro) for 4 weeks 2.5 mg (0.5 mL) subcut QWEEK 2 mL 0RF E11.65 - Type 2 diabetes mellitus with hyperglycemia Changed From empagliflozin (Jardiance) 10 mg PO DAILY 90 tabs 2RF To empagliflozin 25 mg PO DAILY 90 tabs 2RF
[2024-12-02 09:55] VITALS: BP 120/78; PULSE 78; TEMP 36.3; O2SAT 94; BMI 36.8
== END 2024-12-02 10:29 | disposition home or self-care (01) ==
LOC: HO.HMCH 09:52
PROVIDERS: PCP Internal Medicine; Visit Provider Internal Medicine
DX: E11.65 Type 2 diabetes mellitus with hyperglycemia (principal); I10 Essential (primary) hypertension; E66.9 Obesity, unspecified; Z68.36 Body mass index [BMI] 36.0-36.9, adult; E78.00 Pure hypercholesterolemia, unspecified; Z90.3 Acquired absence of stomach [part of]; K21.9 Gastro-esophageal reflux disease without esophagitis; Z12.11 Encounter for screening for malignant neoplasm of colon; G47.33 Obstructive sleep apnea (adult) (pediatric)

== ENCOUNTER → 2024-12-02 09:51 | Outpatient (BNVA) | payer OTHER, SELFPAY | PROVIDERS: PCP Internal Medicine; Visit Provider Internal Medicine | DX: E11.65 Type 2 diabetes mellitus with hyperglycemia (principal); I10 Essential (primary) hypertension; E78.00 Pure hypercholesterolemia, unspecified; E66.9 Obesity, unspecified; K21.9 Gastro-esophageal reflux disease without esophagitis; G47.33 Obstructive sleep apnea (adult) (pediatric); Z99.89 Dependence on other enabling machines and devices; Z79.84 Long term (current) use of oral hypoglycemic drugs; Z90.3 Acquired absence of stomach [part of]; Z68.36 Body mass index [BMI] 36.0-36.9, adult; Z79.899 Other long term (current) drug therapy | CPT/HCPCS: 83036; 99212 ==

== ENCOUNTER 2024-12-25 07:54 | Outpatient (REF) | payer OTHER, SELFPAY ==
[2024-12-25 09:24] LABS: Alanine Aminotransferase 38 U/L (0-40); Albumin Level 4.4 g/dL (3.5-5.0); Alkaline Phosphatase 79 U/L (39-117); Anion Gap 9 (12-20); Aspartate Amino Transferase 30 U/L (5-37); Blood Urea Nitrogen 18 mg/dL (9-16); Calcium 9.6 mg/dL (8.4-10.2); Carbon Dioxide 29 mmol/L (22-29); Chloride 107 mmol/L (96-108); Cholesterol 174 mg/dL (<200); Estimated Glomerular Filt Rate > 60; HDL Cholesterol 50 mg/dL (>40); Potassium 4.2 mmol/L (3.3-5.1); Sodium 141 mmol/L (135-145); Total Protein 7.5 g/dL (6.5-8.0); Triglycerides 111 mg/dL (<150)
== END 2024-12-25 07:55 | disposition home or self-care (01) ==
LOC: HO.LAB 07:54
PROVIDERS: PCP Internal Medicine; Visit Provider Internal Medicine
DX: E11.65 Type 2 diabetes mellitus with hyperglycemia (principal); E78.00 Pure hypercholesterolemia, unspecified
CPT/HCPCS: 36415; 80053; 80061

== ENCOUNTER 2025-02-06 10:02 | Outpatient (AMB) | payer OTHER, SELFPAY ==
--- NOTE | 2025-02-06 10:06 | A.OFFPC_ITS ---
Vital Signs 02/06/25 10:09 02/06/25 10:29 02/06/25 10:30 Height 5 ft 4 in Weight 209 lb 2 oz BMI 35.9 BP 124/90 H 108/70 110/70 Blood Pressure Location Lt brachial Lt brachial Position Sitting Sitting Pulse 76 Pulse Source Pulse Oximeter Temp 97.1 F Temp Source Temporal Artery Scan Pulse Oximetry (%) 96 Oxygen Delivery Method Room Air Intake Visit Reasons: Annual Exam Allergies No Known Allergies (No Known Allergies*) Allergy (Verified 02/06/25 10:11) Medication List - Last Reconciled 02/06/25 by Jany Parikh MD atorvastatin 10 mg PO BEDTIME blood sugar diagnostic (FreeStyle Lite Strips) As directed check the BS QD cholecalciferol (vitamin D3) 25 mcg PO DAILY [CPAP 13 cm FULL FACE MASK humidified AIR As directed] empagliflozin 25 mg PO DAILY lancets (FreeStyle Lancets) As directed check BS QD metformin 500 mg PO BID tirzepatide (Mounjaro) 2.5 mg (0.5 mL) subcut QWEEK Tobacco use date assessed: 02/06/25 Dental Screening Dental Screen Date: 02/06/25 Did you have a dental visit in the last 12 months?: Yes Did you have a dental problem in the last 6 months where you did not have access to dental care?: No Was dental information given to patient?: Patient has dentist [facility] Medical History (Updated 02/06/25 @ 10:23 by Jany Parikh MD) Annual physical exam Hyperlipidemia Liver fibrosis Steatosis, liver Diaphragmatic hernia Sleep apnea GERD (gastroesophageal reflux disease) Hypertension Surgical History History of sleeve gastrectomy Hx of circumcision Hx of LASIK Family History Father No problems noted. Mother HTN (hypertension) Social History (Updated 02/06/25 @ 10:32 by Jany Parikh MD) Housing: House Are you a primary ocular care technologist to a significant other at home: No Do you presently have visiting nurse or other home services: No Alcohol intake: current Alcohol intake frequency: a few times a week Alcohol type: beer Comment: 1-2 x month 1-2 drinks Patient Tobacco Use Status: Never used Tobacco Tobacco use type: Cigarette e-Cigarette/Vaping Use: Never Used Second Hand Smoke Exposure: No service: No Current occupational status: employed Cognitive needs: No Hearing needs: No Vision needs: No Questionnaire PHQ-9 Over the last 2 weeks, how often have you been bothered by any of the following problems? 1. Little interest or pleasure in doing things: not at all 2. Feeling down, depressed, or hopeless: not at all 3. Trouble falling or staying asleep, or sleeping too much: not at all 4. Feeling tired or having little energy: not at all 5. Poor appetite or overeating: not at all 6. Feeling bad about yourself - or that you are a failure or have let yourself or your family down: not at all 7. Trouble concentrating on things, such as reading the newspaper or watching television: not at all 8. Moving or speaking so slowly that other people could have noticed. Or the opposite - being so fidgety or restless that you have been moving around a lot more than usual: not at all 9. Thoughts that you would be better off or of hurting yourself in some way: not at all Total score: 0 Depression Screening Interpretation: Negative Depression Screening Done: Yes Source: Developed by Drs. Rafita Frazier, Leonarda Llamas, Eliseo Durham and colleagues, with an educational ignacio from [employer]. Thrive Questionnaire Date Thrive assessed: 12/01/24 I am a: Patient What is your living situation today?: I have a steady place to live Within the past 12 months, did the food you bought not last and you didn't have the money to get more?: I choose not to answer this question Within the past 12 months, did you worry whether your food would run out before you got money to buy more?: I choose not to answer this question Do you have trouble paying for medicines?: I choose not to answer this question Do you have trouble getting transportation to medical appointments?: I choose not to answer this question Do you have trouble paying your heating and electricity bill?: No Do you have trouble taking care of your child, family member or friend?: No Do you have trouble with day-to-day activities such as bathing, preparing meals, shopping, managing finances, etc.?: No Are you currently unemployed and looking for a job?: No Are you interested in more education?: No Please select the resources that you would like help with: Paying for medicine Currently or been in a relationship where the following occur: I choose not to answer THRIVE Score: 0 AUDIT C Alcohol Use Questionnaire (AUDIT-C) 1. How often do you have a drink containing alcohol?: Monthly or less 2. How many drinks containing alcohol do you have on a typical day when you are drinking?: 1 or 2 3. How often do you have six or more drinks on one occasion?: Never Total Score: 1 FORREST-7 AMB Questionnaire FORREST-7 Date FORREST - 7 assessed: 05/02/24 Feeling nervous, anxious, or on edge: 0 = Not at all Not being able to stop or control worryin = Not at all Worrying too much about different things: 0 = Not at all Trouble relaxin = Not at all Being so restless that it is hard to sit still: 0 = Not at all Becoming easily annoyed or irritable: 0 = Not at all Feeling afraid as if something awful might happen: 0 = Not at all Total FORREST-7 score (0-4 normal; 5-9 mild; 10-14 moderate; 15-21 severe): 0 Source: Developed by Drs. Rafita Frazier, Leonarda Llamas, Eliseo Durham and colleagues, with an educational ignacio from [employer]. Review of Systems Const Denies poor appetite and Denies weakness Eyes Denies no additional complaints ENT Reports Normal hearing present, Denies dizziness, Denies nasal congestion, Denies tinnitus and Denies sore throat Card Denies chest pain, Denies syncope, Denies rapid heart rate and Denies dyspnea Resp Denies cough and Denies dyspnea GI Denies change in stool character, Reports constipation, Denies diarrhea, Denies nausea and Denies vomiting Denies dysuria and Denies urinary frequency Neuro Reports Normal hearing present, Denies confusion, Denies dizziness, Denies syncope and Denies weakness Psych Denies confusion Physical exam (Primary Care) Vital Signs: Last Vital Signs Temp 97.1 F 02/06/25 10:09 Pulse 76 02/06/25 10:09 BP 110/70 02/06/25 10:30 Pulse Ox 96 02/06/25 10:09 Oxygen Delivery Method Room Air 02/06/25 10:09 BMI result Body Mass Index 35.9 Tobacco/Smoking Status: Tobacco use Status Tobacco use date assessed 02/06/25 02/06/25 10:12 Patient Tobacco Use Status Never used Tobacco 02/06/25 10:32 Tobacco use type Cigarette 02/06/25 10:32 e-Cigarette/Vaping Use Never Used 02/06/25 10:32 PHQ-9: PHQ-9 Score PHQ-9: Total score 0 02/06/25 10:25 Depression Screening Interpretation: Negative Thrive Assessment: Date of Thrive Assessment Date Thrive assessed 12/01/24 02/06/25 10:08 Currently or been in a relationship where the following occur: I choose not to answer Const General: No confusion Orientation/consciousness: No confusion HENMT Head: Yes normocephalic Ears: external ears normal and TM's normal bilaterally Face and sinus: Yes normal facial exam Mouth: moist mucous membranes Throat: Yes tonsils normal Eyes Conjunctivae: conjunctivae normal Pupils: Equal, round and reactive pupils present and Pupil accommodation reflex normal Direct Ophthalmoscopy: normal light reflex Neck Neck: No lymphadenopathy Thyroid: Thyroid normal Chest Chest palpation & inspection: normal inspection of the chest Resp Effort & Inspection: normal respiratory effort and no audible wheezes Auscultation: clear to auscultation bilaterally, no crackles, no wheezes and lung sounds not diminished Cardio Rate: regular rate Rhythm: regular rhythm Peripheral pulses: radial pulses present and dorsalis pedis present GI Palpation (GI): no masses Auscultation: normal bowel sounds and normoactive bowel sounds Rectal Exam - Male: Yes deferred Male General Exam: Yes normal external exam Back/Spine/Pelvis Other: scaly rash on bilateral sole of feet Skin General skin exam: no rashes or lesions noted Rashes: no rashes Neuro General: No confusion Cranial nerves: Yes Equal, round and reactive pupils present and Yes Normal hearing present Cognition (Neuro): normal cognition Gait exam (Neuro): Normal gait present Motor exam (neuro): 5/5 motor strength present throughout Deep tendon reflexes (DTR's): Right brachioradialis reflex intensity grade: 2+, Left brachioradialis reflex intensity grade: 2+, Right patellar reflex intensity grade: 2+ and Left patellar reflex intensity grade: 2+ Extrem General: No edema Coding Level of Care Code Est Pt Prev Care 40-64y(47269) Diagnoses Annual physical exam Z00.00 Type 2 diabetes mellitus with hyperglycemia E11.65 Hypercholesterolemia E78.00 History of sleeve gastrectomy Z90.3 Obesity E66.9 GERD (gastroesophageal reflux disease) K21.9 Liver fibrosis K74.00 Colon cancer screening Z12.11 Obstructive sleep apnea G47.33 Tinea pedis B35.3 Assessment & Plan Assessment & Plan (1) Annual physical exam: Code(s): Z00.00 - Encounter for general adult medical examination without abnormal findings Category: Medical Plan: Patient is advised to eat healthy, keep well hydrated, keep active and have adequate sleep. (2) Type 2 diabetes mellitus with hyperglycemia: Comment: Ophthalmology Code(s): E11.65 - Type 2 diabetes mellitus with hyperglycemia Category: Medical Plan: Decrease the amount of carbohydrate intake, pasta, bread, rice and potatoes are all sugar and that is aside from all the sweet stuff, remember that fruits are good but they are Sweet also. Hemoglobin A1c goal of less than 6.5. On Jardiance 25 mg once a day metformin 500 mg once a day and Mounjaro was prescribed (3) Hypercholesterolemia: Code(s): E78.00 - Pure hypercholesterolemia, unspecified Category: Medical Plan: Avoid fried foods, chicken skin, eggs, butter margarine, pastries and meat. Be it pork or beef they have a lot of cholesterol LDL goal of less than 100 on atorvastatin 10 mg at bedtime (4) History of sleeve gastrectomy: Comment: 01/27/2020 Code(s): Z90.3 - Acquired absence of stomach [part of] Category: Surgical Plan: Continue to follow-up with bariatric (5) Obesity: Code(s): E66.9 - Obesity, unspecified Category: Medical Plan: Diet and exercise (6) GERD (gastroesophageal reflux disease): Code(s): K21.9 - Gastro-esophageal reflux disease without esophagitis Category: Medical Plan: Avoid the foods that causes that usually spicy foods, tomato products, juices, coffee, soda and foods that your sensitive to. After eating do not lie down, allow 3-4 hours before in lie down. And keep the head of bed above 30 degrees to avoid the acid from going up. (7) Liver fibrosis: Code(s): K74.00 - Hepatic fibrosis, unspecified Category: Medical Plan: Low-fat diet and exercise (8) Colon cancer screening: Comment: Index screening colonoscopy Code(s): Z12.11 - Encounter for screening for malignant neoplasm of colon Category: Medical Plan: Reminded about colon cancer screening (9) Obstructive sleep apnea: Comment: Follows with PCP Code(s): G47.33 - Obstructive sleep apnea (adult) (pediatric) Category: Medical Plan: Discussed about CPAP to use more than 4 hours a night and benefits from this. (10) Tinea pedis: Code(s): B35.3 - Tinea pedis Category: Medical Plan History of Present Illness The patient is a 49-year-old obese male presenting for an annual physical examination and follow-up of chronic conditions. He has a history of hypertension, obstructive sleep apnea, hepatic steatosis, type 2 diabetes mellitus, and hypercholesterolemia. He underwent a sleeve gastrectomy in 2019 and reports a 5-pound weight loss since November. His medications include vitamin D, atorvastatin 10 mg, Jardiance 25 mg, metformin 500 mg twice daily, and Mounjaro injections. For his sleep apnea, he uses a CPAP machine for about four hours per night and finds it somewhat helpful. Recent lab work from December 02 showed a blood sugar of 124 mg/dL and a hemoglobin A1c of 6.6%. His LDL cholesterol improved to 102 mg/dL in December from 138 mg/dL last year. Kidney function, which had worsened over the past two years, has recently improved. Urinalysis in February was negative for proteinuria. The patient recently had a colonoscopy in October of this year, with a recommendation for a 10-year follow-up. He consumes alcohol once or twice a month, denies any history of smoking or recreational drug use, and has no family history of heart attack or cancer. Health Maintenance The patient was reminded of his upcoming diabetic eye exam and the importance of this screening to prevent retinopathy. The record of his recent colonoscopy, which recommended a 10-year follow-up, will be obtained for his chart. Will repeat labs in three months. Patient declined influenza vaccination. Social History - Alcohol Use: Reports drinking one or two beers once or twice a month, noting a decrease in consumption. - Tobacco Use: Denies ever smoking. - Illicit Drug Use: Denies any use of recreational drugs. - Diet: Reports making efforts to eat less food and smaller portions. - Exercise: Reports trying to move more. Review of Systems - General: Denies syncope, dizziness, nausea, vomiting, or fever. - HEENT: Reports good hearing. Denies dysphagia. - Respiratory: Denies paroxysmal nocturnal dyspnea or cough. - Cardiovascular: Denies chest pain. - Gastrointestinal: Reports good bowel movements. Denies heartburn. - Genitourinary: Reports normal urination. Denies nocturia. - Dermatologic: Reports itchiness on feet. Physical Exam General: Cooperative, healthy appearing, comfortable, no acute distress and well developed Orientation: Patient oriented x3 Limitations: No limitations Head: Normal to inspection Ears: Hearing grossly normal bilaterally, slight ear wax noted on one side but not blocking Nose: Normal external nose present Face and sinus: Normal facial exam Eyes: Appearance normal, both eyes and all related structures Neck: Normal visual inspection and Yes full ROM Respiratory: Normal respiratory effort and able to speak in complete sentences. Clear to auscultation bilaterally Cardiovascular: Regular rate and rhythm. Normal S1 and S2 GI: Normal to inspection. Soft to palpation and nontender Skin: No rashes or lesions noted Neuro: Patient oriented x3 Extremities: Normal to inspection, slight dryness noted on feet, antifungal cream prescribed for use between toes and underneath. Results - Labs: Blood work from February 2024 showed a normal blood count and no protein uria. - Labs: Blood work from December 2023 showed normal electrolytes and improved kidney function. - Labs: Blood sugar was 124 mg/dL with a hemoglobin A1c of 6.6% on December 02, 2024. - Labs: LDL cholesterol was 102 mg/dL in December. Plan Patient was informed and verbally consented to the use of an ambient scribe for clinic note documentation during this visit. 1. Type 2 Diabetes Mellitus The patient's hemoglobin A1c is 6.6%, which is slightly above the goal of less than 6.5%. He will continue Jardiance 25 mg daily and metformin 500 mg twice daily. A prescription for Mounjaro (tirzepatide) 5 mg weekly has been sent to the pharmacy. He was instructed to monitor his weight and contact the office after three weeks if there is no weight loss to consider a dose increase. Follow -up labs, including an A1c, will be ordered in three months. 2. Hypercholesterolemia The patient's LDL cholesterol is 102 mg/dL, which is an improvement but has not yet reached the goal of less than 100 mg/dL. He will continue atorvastatin 10 mg at bedtime. His cholesterol will be rechecked in three months, and the atorvastatin dose will be increased if the LDL goal is not met. 3. Obstructive Sleep Apnea Discussed the importance of using CPAP for more than four hours nightly to achieve maximum benefit. Alternative treatments, including an oral appliance and the Inspire implant, were briefly mentioned. 4. Tinea Pedis An antifungal cream has been prescribed for itching on the feet, to be applied twice daily for one month, particularly between the toes. Discussion Notes I reviewed the patient's lab results with him, noting his HbA1c of 6.6%, and discussed a goal of getting it below 6.5%. We discussed starting Mounjaro 5 mg and titrating the dose based on weight loss response after three weeks. I also discussed his cholesterol, explaining that his LDL of 102 mg/dL is not yet at the goal of under 100 mg/dL to reduce the risk of heart attacks. We will plan to recheck labs in three months and increase his atorvastatin if the goal is not met. I emphasized the importance of his upcoming diabetic eye exam to monitor for potential bleeding in the back of the eye, which can lead to blindness. I prescribed an antifungal cream for his feet and gave instructions for use. We also discussed continuing a low-fat diet, exercise, and maintaining compliance with his CPAP. The patient declined a flu shot. I provided anticipatory guidance regarding the ongoing risk of COVID-19. Patient Instructions - Continue taking your current medications as prescribed, including Jardiance, metformin, and atorvastatin. - Start the Mounjaro 5 mg injection once a week. If you are not losing weight after three weeks, send me a message so we can increase the dose. - Apply the antifungal cream to your feet twice a day for one month, especially between your toes. - Continue your efforts with a low-fat diet and regular exercise. - Use your CPAP machine for at least 4 hours every night. - You will need to get blood work done in three months to check your diabetes and cholesterol levels. - Keep your scheduled eye exam appointment on February 09. - Be careful, as COVID-19 is still spreading. Orders: Orders Comprehensive Met. Panel 3 Months E11.65 - Type 2 diabetes mellitus with hyperglycemia Free T4 (Free Thyroxine) 3 Months E11.65 - Type 2 diabetes mellitus with hyperglycemia Thyroid Stimulating Hormone 3 Months E11.65 - Type 2 diabetes mellitus with hyperglycemia Hemoglobin A1c 3 Months E11.65 - Type 2 diabetes mellitus with hyperglycemia Lipid Panel 3 Months E11.65 - Type 2 diabetes mellitus with hyperglycemia, E78.00 - Pure hypercholesterolemia, unspecified Microalbumin, Random (w Creat) 3 Months E11.65 - Type 2 diabetes mellitus with hyperglycemia Complete Blood Count Auto Diff 3 Months E11.65 - Type 2 diabetes mellitus with hyperglycemia Vitamin B12 and Folate 3 Months E11.65 - Type 2 diabetes mellitus with hyperglycemia Prostate Specific Antigen Scr 3 Months E11.65 - Type 2 diabetes mellitus with hyperglycemia Creatinine Urine 3 Months E11.65 - Type 2 diabetes mellitus with hyperglycemia Medications: New clotrimazole 1% 1 appl topical BID 45 grams 2RF 4 weeks B35.3 - Tinea pedis, E11.65 - Type 2 diabetes mellitus with hyperglycemia Changed From tirzepatide (Mounjaro) for 4 weeks 2.5 mg (0.5 mL) subcut QWEEK 2 mL 0RF E11.65 - Type 2 diabetes mellitus with hyperglycemia To tirzepatide for 4 weeks 5 mg (0.5 mL) subcut QWEEK 2 mL 3RF E11.65 - Type 2 diabetes mellitus with hyperglycemia
[2025-02-06 10:09] VITALS: BP 124/90; PULSE 76; TEMP 36.2; O2SAT 96; BMI 35.9
[2025-02-06 10:29] VITALS: BP 108/70
[2025-02-06 10:30] VITALS: BP 110/70
== END 2025-02-06 10:51 | disposition home or self-care (01) ==
LOC: HO.HMCH 10:03
PROVIDERS: PCP Internal Medicine; Visit Provider Internal Medicine
DX: Z00.00 Encounter for general adult medical examination without abnormal findings (principal); E11.65 Type 2 diabetes mellitus with hyperglycemia; E66.9 Obesity, unspecified; Z68.35 Body mass index [BMI] 35.0-35.9, adult; E78.00 Pure hypercholesterolemia, unspecified; Z90.3 Acquired absence of stomach [part of]; K21.9 Gastro-esophageal reflux disease without esophagitis; K74.00 Hepatic fibrosis, unspecified; Z12.11 Encounter for screening for malignant neoplasm of colon; G47.33 Obstructive sleep apnea (adult) (pediatric); B35.3 Tinea pedis

== ENCOUNTER → 2025-02-06 10:02 | Outpatient (BNVA) | payer OTHER, SELFPAY | PROVIDERS: PCP Internal Medicine; Visit Provider Internal Medicine | DX: Z00.00 Encounter for general adult medical examination without abnormal findings (principal); E11.65 Type 2 diabetes mellitus with hyperglycemia; E78.00 Pure hypercholesterolemia, unspecified; E66.9 Obesity, unspecified; K21.9 Gastro-esophageal reflux disease without esophagitis; K74.00 Hepatic fibrosis, unspecified; G47.33 Obstructive sleep apnea (adult) (pediatric); B35.3 Tinea pedis; Z90.3 Acquired absence of stomach [part of]; Z68.35 Body mass index [BMI] 35.0-35.9, adult | CPT/HCPCS: 99396 ==

== ENCOUNTER 2025-03-18 12:28 | Outpatient (AMB) | payer OTHER, SELFPAY ==
--- NOTE | 2025-03-18 12:38 | MHC.OFFVIS ---
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 He was seen with Dr Corona on 04/01/24 where a injection was discussed but patient declined at the time. Today patient states he is continuing to have pain and wouldl karie to discuss injection. Allergies No Known Allergies (No Known Allergies*) Allergy (Verified 03/18/25 12:38) HPI HPI OV-Rt hand pain: Details: Lio is a 49-year-old [id number] Diabetic man who returns to discuss his right hand pain. He complains of some pain and clicking in his right hand that has been present for about 6 years. It is mostly over the 3rd MCP joint. He also says he has worsening pain at times when he wakes up in the morning, depending on his arm position while he sleeps. He says in the last few days his ROM has improved and he has been able to more comfortably make a closed fist for the 1st time in 6 years. He would had wanted to discuss injections at this time but is unsure if it is needed now. [facility] Medical History (Updated 02/06/25 @ 10:23 by Jany Parikh MD) Annual physical exam Hyperlipidemia Liver fibrosis Steatosis, liver Diaphragmatic hernia Sleep apnea GERD (gastroesophageal reflux disease) Hypertension Surgical History History of sleeve gastrectomy Hx of circumcision Hx of LASIK Family History Father No problems noted. Mother HTN (hypertension) Social History Housing: House Are you a primary director of health care marketing to a significant other at home: No Do you presently have visiting nurse or other home services: No Alcohol intake: current Alcohol intake frequency: a few times a week Alcohol type: beer Comment: 1-2 x month 1-2 drinks Patient Tobacco Use Status: Never used Tobacco Tobacco use type: Cigarette e-Cigarette/Vaping Use: Never Used Second Hand Smoke Exposure: No service: No Current occupational status: employed Cognitive needs: No Hearing needs: No Vision needs: No Review of Systems Const All systems reviewed & are unremarkable except as noted in HPI and below Physical Exam Vital Signs: BMI result Body Mass Index 35.9 Const General: no acute distress and alert Orientation/consciousness: patient oriented x3 Neuro General: patient oriented x3 Extrem Other: Evaluation of Right Upper Extremity: The patient is alert, oriented, and in no acute distress Neuro: Median, Ulnar, Radial nerves motor and sensory intact and sensation is normal to the tips of all digits Vascular: Cap refill brisk ROM: He can actively extend all of his digits, and he can actively bring them all to a fully closed to a fist. No locking or catching No subluxation of the extensor mechanism with finger flexion to a fist Only minimal tenderness over the 3rd MCP joint dorsally. No tenderness over the A1 ajay Not particularly tender over the A1 ajay No locking or catching or other indications of trigger finger. Radiographs: 3 views of the right hand 02/29/2024 was reviewed by me today. I see no fractures or dislocations. He does have some early arthritic changes in the 2nd 3rd and 4th MCP joints. Psych Appearance: grossly normal Affect: normal affect Attitude: cooperative Assessment & Plan Assessment & Plan (1) Finger pain, right: Code(s): M79.644 - Pain in right finger(s) Category: Medical (2) Arthritis of right hand: Code(s): M19.041 - Primary osteoarthritis, right hand Category: Medical Plan Assessment and plan: 1. 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 Scribed for Flower Corona MD by Fortino Schroeder medical transcriber, on 03/18/25 at 1:10 PM, EST. Coding Level of Care Code Est Pt Level 3 (59438) Diagnoses Finger pain, right M79.644 Arthritis of right hand M19.041
[2025-03-18 12:50] VITALS: BMI 35.9
== END 2025-03-18 13:30 | disposition home or self-care (01) ==
LOC: HO.HOS 12:28
PROVIDERS: PCP Internal Medicine; Visit Provider Orthopaedic Surgery
DX: M79.644 Pain in right finger(s) (principal); M19.041 Primary osteoarthritis, right hand
CPT/HCPCS: 99213

== ENCOUNTER → 2025-03-18 12:28 | Outpatient (BNVA) | payer OTHER, SELFPAY | PROVIDERS: PCP Internal Medicine; Visit Provider Orthopaedic Surgery | DX: M79.644 Pain in right finger(s) (principal); M19.041 Primary osteoarthritis, right hand | CPT/HCPCS: 99212 ==

== ENCOUNTER 2025-03-26 07:48 | Outpatient (REF) | payer OTHER, SELFPAY ==
[2025-03-26 08:04] LABS: MANUAL DIFF FLAG NO
[2025-03-26 08:22] LABS: Hematocrit 49.8 % (42.0-52.0); Hemoglobin 16.7 g/dl (14.0-18.0); Imm Gran Abs Auto 0.02 X10*3/uL (0.00-0.03); Imm Gran Pct Auto 0.3 % (0.0-0.4); Lymphocytes Absolute Auto 1.4 X10*3/uL (1.2-4.9); Mean Corpuscular HGB Conc 33.5 g/dl (31.0-36.0); Mean Corpuscular Hemoglobin 28.8 pg (27.0-33.0); Mean Corpuscular Volume 85.9 fL (80.0-98.0); NRBC Abs Auto 0.000 X10*3/uL (0.0-0.012); NRBC Pct Auto 0.0 /100WBC (0.0-0.2); Platelet Count 223 X10*3/uL (160-400); Red Blood Count 5.80 X10*6/uL (4.60-5.80); White Blood Count 7.0 X10*3/uL (4.8-10.8)
[2025-03-26 08:38] LABS: Alanine Aminotransferase 35 U/L (0-40); Albumin Level 4.8 g/dL (3.5-5.0); Alkaline Phosphatase 85 U/L (39-117); Anion Gap 11 (12-20); Aspartate Amino Transferase 32 U/L (5-37); Blood Urea Nitrogen 14 mg/dL (9-16); Calcium 10.0 mg/dL (8.4-10.2); Carbon Dioxide 29 mmol/L (22-29); Chloride 105 mmol/L (96-108); Cholesterol 158 mg/dL (<200); Estimated Glomerular Filt Rate 36; HDL Cholesterol 40 mg/dL (>40); Potassium 4.0 mmol/L (3.3-5.1); Sodium 141 mmol/L (135-145); Total Protein 7.9 g/dL (6.5-8.0); Triglycerides 103 mg/dL (<150)
[2025-03-26 08:49] LABS: Free T4 (Free Thyroxine) 1.06 ng/dL (0.71-1.85); Thyroid Stimulating Hormone 0.69 uIU/mL (0.32-4.0)
[2025-03-26 09:05] LABS: Folate 4.7 ng/mL (> or = 4.0); Vitamin B12 408 pg/mL (200-900)
[2025-03-26 09:29] LABS: Microalbum/Creatinine Ratio Ur 2.0 ug/mg cr (<30)
== END 2025-03-26 07:49 | disposition home or self-care (01) ==
LOC: HO.LAB 07:48
PROVIDERS: PCP Internal Medicine; Visit Provider Internal Medicine
DX: E11.65 Type 2 diabetes mellitus with hyperglycemia (principal); E78.00 Pure hypercholesterolemia, unspecified; I10 Essential (primary) hypertension; E66.9 Obesity, unspecified; K21.9 Gastro-esophageal reflux disease without esophagitis; M79.644 Pain in right finger(s); G47.33 Obstructive sleep apnea (adult) (pediatric); N28.9 Disorder of kidney and ureter, unspecified; Z90.3 Acquired absence of stomach [part of]; Z68.36 Body mass index [BMI] 36.0-36.9, adult
CPT/HCPCS: 36415; 80053; 80061; 82043; 82570; 82607; 82746; 83036; 84153; 84439; 84443; 85025; 99212

== ENCOUNTER 2025-03-26 09:24 | Outpatient (AMB) | payer OTHER, SELFPAY ==
--- NOTE | 2025-03-26 09:34 | MHC.PC.OV ---
Vital Signs 03/26/25 09:35 Height 5 ft 4 in Weight 213 lb 4 oz BMI 36.6 BP 122/70 Blood Pressure Location Lt brachial Position Sitting Respiration 14 Pulse 72 Pulse Source Pulse Oximeter Temp 97 F Temp Source Tympanic Pulse Oximetry (%) 96 Oxygen Delivery Method Room Air Intake Visit Reasons: Follow Up Allergies No Known Allergies (No Known Allergies*) Allergy (Verified 03/26/25 09:34) Medication List - Last Reconciled 03/26/25 by Jany Parikh MD aspirin 81 mg PO DAILY atorvastatin 10 mg PO BEDTIME blood sugar diagnostic (FreeStyle Lite Strips) As directed check the BS QD cholecalciferol (vitamin D3) 25 mcg PO DAILY clotrimazole 1% 1 appl topical BID 4 weeks [CPAP 13 cm FULL FACE MASK humidified AIR As directed] empagliflozin 25 mg PO DAILY lancets (FreeStyle Lancets) As directed check BS QD tirzepatide 5 mg (0.5 mL) subcut QWEEK Tobacco use date assessed: 02/06/25 Dental Screening Dental Screen Date: 02/06/25 HPI HPI Comments History of Present Illness Details History of Present Illness The patient is a 49-year-old male presenting for a DOT physical. His medical history includes gastroesophageal reflux disease, hypertension, obstructive sleep apnea, hepatic steatosis, diabetes mellitus, and hypercholesterolemia. He has a history of right hand pain, for which he saw an orthopedist in March. He was diagnosed with arthritis and was recommended to undergo physical therapy or exercises, with a conservative treatment approach. His last colonoscopy was in July 2023 and was normal. Recent blood work showed a normal blood count and good electrolytes, but a change in renal function was noted. His hemoglobin A1c was 5.7 and his LDL was 98. Health Maintenance - Colonoscopy performed in July 2023 was normal. - For obstructive sleep apnea, the patient uses CPAP for over 4 hours a night and benefits from it. - Follow-up with bariatrics is ongoing. - Advised on diet and exercise. - Advised to stay well hydrated and avoid NSAIDs to protect renal function. Social History - Diet and exercise were discussed. Results - Complete blood count: Normal. - Electrolytes: Good. - Renal function: A change was noted. - Hemoglobin A1c: 5.7%. - LDL: 98 mg/dL. - Colonoscopy (July 2023): Normal. [facility] Medical History (Updated 03/26/25 @ 09:50 by Jany Parikh MD) Annual physical exam Hyperlipidemia Liver fibrosis Steatosis, liver Diaphragmatic hernia Sleep apnea GERD (gastroesophageal reflux disease) Hypertension Surgical History History of sleeve gastrectomy Hx of circumcision Hx of LASIK Family History Father No problems noted. Mother HTN (hypertension) Social History Housing: House Are you a primary critical care specialist to a significant other at home: No Do you presently have visiting nurse or other home services: No Alcohol intake: current Alcohol intake frequency: a few times a week Alcohol type: beer Comment: 1-2 x month 1-2 drinks Patient Tobacco Use Status: Never used Tobacco Tobacco use type: Cigarette e-Cigarette/Vaping Use: Never Used Second Hand Smoke Exposure: No service: No Current occupational status: employed Cognitive needs: No Hearing needs: No Vision needs: No Questionnaire Thrive Questionnaire Date Thrive assessed: 12/01/24 I am a: Patient What is your living situation today?: I have a steady place to live Within the past 12 months, did the food you bought not last and you didn't have the money to get more?: I choose not to answer this question Within the past 12 months, did you worry whether your food would run out before you got money to buy more?: I choose not to answer this question Do you have trouble paying for medicines?: I choose not to answer this question Do you have trouble getting transportation to medical appointments?: I choose not to answer this question Do you have trouble paying your heating and electricity bill?: No Do you have trouble taking care of your child, family member or friend?: No Do you have trouble with day-to-day activities such as bathing, preparing meals, shopping, managing finances, etc.?: No Are you currently unemployed and looking for a job?: No Are you interested in more education?: No Please select the resources that you would like help with: Paying for medicine Currently or been in a relationship where the following occur: I choose not to answer THRIVE Score: 0 FORREST-7 AMB Questionnaire FORREST-7 Date FORREST - 7 assessed: 05/02/24 Source: Developed by Drs. Rafita Frazier, Leonarda Llamas, Eliseo Durham and colleagues, with an educational ignacio from [employer] ([employer]). Review of Systems Narrative Review of Systems - Musculoskeletal: Reports right hand pain. Physical exam (Primary Care) Vital Signs: Last Vital Signs Temp 97 F 03/26/25 09:35 Pulse 72 03/26/25 09:35 Resp 14 03/26/25 09:35 BP 122/70 03/26/25 09:35 Pulse Ox 96 03/26/25 09:35 Oxygen Delivery Method Room Air 03/26/25 09:35 BMI result Body Mass Index 36.6 Tobacco/Smoking Status: Tobacco use Status Tobacco use date assessed 02/06/25 03/26/25 09:34 Patient Tobacco Use Status Never used Tobacco 03/26/25 09:34 Tobacco use type Cigarette 03/26/25 09:34 e-Cigarette/Vaping Use Never Used 03/26/25 09:34 Thrive Assessment: Date of Thrive Assessment Date Thrive assessed 12/01/24 03/26/25 09:34 Currently or been in a relationship where the following occur: I choose not to answer Narrative Physical Exam Const General: alert; No acute distress Eyes Conjunctivae: conjunctivae normal Resp Auscultation: clear to auscultation bilaterally Cardio Rate: regular rate Rhythm: regular rhythm GI Inspection: Yes normal to inspection Extrem General: Yes normal to inspection and No edema Coding Level of Care Code Est Pt Level 4 (80732) Add On Problem Visit Only Diagnoses Type 2 diabetes mellitus with hyperglycemia E11.65 Hypertension I10 Hypercholesterolemia E78.00 History of sleeve gastrectomy Z90.3 Obesity E66.9 GERD (gastroesophageal reflux disease) K21.9 Finger pain, right M79.644 Obstructive sleep apnea G47.33 Renal insufficiency N28.9 Assessment & Plan Assessment & Plan (1) Type 2 diabetes mellitus with hyperglycemia: Comment: Ophthalmology Code(s): E11.65 - Type 2 diabetes mellitus with hyperglycemia Category: Medical Plan: Decrease the amount of carbohydrate intake, pasta, bread, rice and potatoes are all sugar and that is aside from all the sweet stuff, remember that fruits are good but they are Sweet also. Hemoglobin A1c goal of less than 6.5. (2) Hypertension: Code(s): I10 - Essential (primary) hypertension Category: Medical Plan: Continue with blood pressure medication. Decrease salt intake and exercise (3) Hypercholesterolemia: Code(s): E78.00 - Pure hypercholesterolemia, unspecified Category: Medical Plan: Avoid fried foods, chicken skin, eggs, butter margarine, pastries and meat. Be it pork or beef they have a lot of cholesterol LDL goal of less than 100 and triglyceride of less than 150 (4) History of sleeve gastrectomy: Comment: 01/27/2020 Code(s): Z90.3 - Acquired absence of stomach [part of] Category: Surgical Plan: Continue to follow-up with bariatric (5) Obesity: Code(s): E66.9 - Obesity, unspecified Category: Medical Plan: Diet and exercise (6) GERD (gastroesophageal reflux disease): Code(s): K21.9 - Gastro-esophageal reflux disease without esophagitis Category: Medical Plan: Avoid the foods that causes that usually spicy foods, tomato products, juices, coffee, soda and foods that your sensitive to. After eating do not lie down, allow 3-4 hours before in lie down. And keep the head of bed above 30 degrees to avoid the acid from going up. (7) Finger pain, right: Code(s): M79.644 - Pain in right finger(s) Category: Medical Plan: Patient has seen Orthopedics and treated concern (8) Obstructive sleep apnea: Comment: Follows with PCP Code(s): G47.33 - Obstructive sleep apnea (adult) (pediatric) Category: Medical Plan: Continue to use the CPAP more than 4 hours a night and benefits from this (9) Renal insufficiency: Code(s): N28.9 - Disorder of kidney and ureter, unspecified Category: Medical Plan: Patient was advised to retest and keep well hydrated avoid NSAIDs Plan Plan Patient was informed and verbally consented to the use of an ambient scribe for clinic note documentation during this visit. 1. Diabetes Mellitus The plan is to target a hemoglobin A1c of less than 6.5%. 2. Hypertension A plan is in place for blood pressure management. 3. Hypercholesterolemia The goal is to maintain an LDL of less than 100 mg/dL and triglycerides of less than 150 mg/dL. 4. Obesity The patient will continue to follow up with bariatrics and is advised to continue with diet and exercise modifications. 5. Gastroesophageal Reflux Disease A treatment plan for reflux is in place. 6. Arthritis Of Right Hand The patient has been evaluated by orthopedics and is being treated conservatively. 7. Obstructive Sleep Apnea The patient will continue to use his CPAP for more than 4 hours per night, as he reports benefiting from it. 8. Renal Insufficiency The patient has been advised to have his labs retested, maintain good hydration, and avoid NSAIDs. Discussion Notes I have reviewed the patient's chronic conditions and management plan. For his diabetes, the goal is a hemoglobin A1c below 6.5%. For hypercholesterolemia, the target is an LDL below 100 and triglycerides below 150. Regarding the noted change in renal function, I advised the patient to retest his labs, maintain adequate hydration, and avoid using NSAIDs. He will continue CPAP use for obstructive sleep apnea, follow up with bariatrics, and maintain diet and exercise. His right hand arthritis is being managed conservatively following an orthopedic consultation. Patient Instructions - Your goal for diabetes management is a hemoglobin A1c level of less than 6.5%. - For your cholesterol, aim for an LDL level below 100 and triglycerides below 150. - Continue to follow up with the bariatrics team. - Continue your efforts with diet and exercise. - Continue using your CPAP machine for more than 4 hours each night for your sleep apnea. - We will need to repeat your blood work to check on your kidney function. - Please make sure to stay well-hydrated and avoid taking NSAID pain relievers like ibuprofen or naproxen. Orders: Orders Basic Metabolic Panel Today N28.9 - Disorder of kidney and ureter, unspecified Medications: Changed From tirzepatide for 4 weeks 5 mg (0.5 mL) subcut QWEEK 2 mL 3RF E11.65 - Type 2 diabetes mellitus with hyperglycemia To tirzepatide for 4 weeks 7.5 mg (0.5 mL) subcut QWEEK 2 mL 3RF E11.65 - Type 2 diabetes mellitus with hyperglycemia Refilled lancets (FreeStyle Lancets) As directed check BS QD 100 ea 3RF E11.65 - Type 2 diabetes mellitus with hyperglycemia
[2025-03-26 09:35] VITALS: BP 122/70; PULSE 72; RESP 14; TEMP 36.1; O2SAT 96; BMI 36.6
== END 2025-03-26 10:01 | disposition home or self-care (01) ==
LOC: HO.HMCH 09:25
PROVIDERS: PCP Internal Medicine; Visit Provider Internal Medicine
DX: E11.65 Type 2 diabetes mellitus with hyperglycemia (principal); I10 Essential (primary) hypertension; Z68.36 Body mass index [BMI] 36.0-36.9, adult; E66.9 Obesity, unspecified; E78.00 Pure hypercholesterolemia, unspecified; Z90.3 Acquired absence of stomach [part of]; K21.9 Gastro-esophageal reflux disease without esophagitis; M79.644 Pain in right finger(s); G47.33 Obstructive sleep apnea (adult) (pediatric); N28.9 Disorder of kidney and ureter, unspecified